=== PATIENT | female | born 1940 | race Caucasian/White ===

== ENCOUNTER 2016-02-27 10:10 | Outpatient (CLI) | payer MEDICARE, OTHER | END 2016-02-27 10:11 | disposition home or self-care (01) | DX: Z12.31 Encounter for screening mammogram for malignant neoplasm of breast (principal); Z80.3 Family history of malignant neoplasm of breast ==

== ENCOUNTER 2016-06-13 16:31 | Emergency (ER) | payer MEDICARE, OTHER | END 2016-06-13 21:09 | disposition home or self-care (01) | DX: S71.112A Laceration without foreign body, left thigh, initial encounter (principal); W01.0XXA Fall on same level from slipping, tripping and stumbling without subsequent striking against object, initial encounter; Z86.73 Personal history of transient ischemic attack (TIA), and cerebral infarction without residual deficits; Z79.01 Long term (current) use of anticoagulants; I10 Essential (primary) hypertension; E78.00 Pure hypercholesterolemia, unspecified; J45.909 Unspecified asthma, uncomplicated; K21.9 Gastro-esophageal reflux disease without esophagitis; Z87.891 Personal history of nicotine dependence ==

== ENCOUNTER 2016-07-27 09:36 | Emergency (ER) | payer MEDICARE, OTHER ==
[2016-07-27] MEDS ORDERED: DEXAMETHASONE 10 MG/ML VIAL ONE ×2 (09:53→10:32)
[2016-07-27] MEDS ORDERED: BENZONATATE 100 MG CAPSULE PO ONE (09:53)
[2016-07-27] MEDS ORDERED: CHERRY SYRUP 10 ML UDC PO ONE (09:53)
--- NOTE | 2016-07-27 10:05 | ED Physician Documentation ---
PD HPI SKIN - Stated complaint Stated Complaint: ALLERGIC REACTION - Chief complaint Chief Complaint: Allergic Rx - History obtained from History obtained from: Patient - History of Present Illness Timing - onset: Last night (She has had right lower back pain for 2-3 days, severe and without injury. Went to PMD and was given Rx for Vicodin. Had onset of some rash in low back last night, worse today. No general rash. Noted just in area of pain in back and now also some in right foot. Called PMD and was told to stop the vicodin as likely allergic reaction, and to go to the ED.) Timing - duration: Days Timing - details: Gradual onset, Still present Location: Back (right lower back and some rash on foot today) Quality / character: Itchy, Painful, Discolored (red patches), Vesicular. No: Draining Associated symptoms: No: Fever, Myalgias, Abd pain, N/V/D Contributing factors: Exposed to medication (started vicodin yesterday and also medrol dose pack.) Similar symptoms before: Has not had sx before Recently seen: Clinic Review of Systems Constitutional: denies: Fever, Chills Cardiac: denies: Chest pain / pressure Respiratory: denies: Dyspnea, Cough, Wheezing GI: denies: Nausea, Vomiting, Diarrhea Musculoskeletal: reports: Back pain (just past 3 days). 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 - Present Medications Home Medications: Ambulatory Orders Medication Instructions Recorded Confirmed Levetiracetam 1,000 mg PO BID 09/11/12 07/27/16 Metoprolol Succinate 50 mg PO DAILY 09/11/12 07/27/16 Sertraline [Zoloft] 100 mg PO DAILY 09/11/12 07/27/16 traZODone [Desyrel] 50 mg PO HS 09/11/12 07/27/16 Lisinopril 20 mg PO DAILY 10/12/13 07/27/16 Lorazepam 1 mg PO DAILY PRN 10/12/13 07/27/16 Omeprazole [PriLOSEC] 20 mg PO DAILY 06/14/14 07/27/16 lamoTRIgine [LaMICtal] 300 mg PO BID 02/06/16 07/27/16 Colestipol HCl [Colestipol HCl] 1 gm PO BID 02/11/16 07/27/16 Gabapentin [Neurontin] 100 mg PO DAILY #20 capsule 07/27/16 Valacyclovir HCl [Valacyclovir] 1,000 mg PO TID #20 tablet 07/27/16 - Allergies Allergies/Adverse Reactions: Allergies Allergy/AdvReac Type Severity Reaction Status Date / Time acyclovir Allergy Unknown Verified 06/13/16 16:42 iodine Allergy unknown Verified 06/13/16 16:42 morphine Allergy unknown Verified 06/13/16 16:42 oxycodone HCl * Allergy Unknown Verified 06/13/16 16:42 [From Percodan] oxycodone terephthalate * Allergy Unknown Verified 06/13/16 16:42 [From Percodan] propoxyphene napsylate * Allergy unknown Verified 06/13/16 16:42 [From Darvocet-N 100] rosuvastatin calcium * Allergy Unknown Verified 06/13/16 16:42 [From Crestor] shellfish derived Allergy unknown Verified 06/13/16 16:42 sumatriptan [From Imitrex] Allergy Unknown Verified 06/13/16 16:42 sumatriptan succinate * Allergy Unknown Verified 06/13/16 16:42 [From Imitrex] - Social History Does the pt smoke?: No Smoking Status: Former smoker Does the pt drink ETOH?: No Does the pt have substance abuse?: No - Immunizations Immunizations are current?: Yes PD ED PE NORMAL - Vitals Vital signs reviewed: Yes - General General: Alert and oriented X 3, No acute distress, Well developed/nourished, Other (appears in back due to right low back but with ROM of the back) - Neck Neck: Supple, no meningeal sign, No adenopathy - Cardiac Cardiac: RRR, No murmur - Respiratory Respiratory: Clear bilaterally - Abdomen Abdomen: Soft, Non tender - Back Back: No CVA TTP, No spinal TTP, Other (tender right lower back around L5 level. There is rash that is patchy red with vesicles lateral to that level and down strip of gluteal to back of upper thigh. Appears c/w shingles. ) - Derm Derm: Normal color, Warm and dry - Extremities Extremities: Normal ROM s pain - Neuro Neuro: Alert and oriented X 3, No motor deficit, No sensory deficit, Normal speech - Psych Psych: Normal mood, Normal affect Results - Vitals Vitals: Vital Signs - 24 hr 07/27/16 07/27/16 09:44 11:28 Temperature 36.4 C L Heart Rate 95 63 Respiratory 18 18 Rate Blood Pressure 122/67 132/58 H O2 Saturation 99 100 Oxygen O2 Source [Without Activity] Room air O2 Source Room air PD MEDICAL DECISION MAKING - ED course Complexity details: considered differential, d/w patient Departure - Departure Disposition: 01 Home, Self Care Clinical Impression: Back pain Qualifiers: Back pain location: low back pain Chronicity: acute Back pain laterality: right Sciatica presence: with sciatica Sciatica laterality: sciatica of right side Qualified Code(s): M54.41 - Lumbago with sciatica, right side Shingles rash Qualifiers: Herpes zoster complications: without complications Qualified Code(s): B02.9 - Zoster without complications Condition: Stable Record reviewed to determine appropriate education?: Yes Instructions: ED Shingles Follow-Up: Lyle Bartlett MD [Primary Care Provider] - Prescriptions: Gabapentin [Neurontin] 100 mg PO DAILY #20 capsule Valacyclovir HCl [Valacyclovir] 1,000 mg PO TID #20 tablet Comments: Valacyclovir as directed for the shingles virus. Continue the steroid pack you were on. Tylenol 650 mg or the Hydrocodone every 6 hours as needed for pain. Gabapentin nightly for 3 weeks. Recheck with PMD this coming week. Discharge Date/Time: 07/27/16 11:33
[2016-07-27] MEDS ORDERED: DEXAMETHASONE 10 MG/ML VIAL PO STA (10:30)
[2016-07-27] MEDS ORDERED: HYDROcod/ACETAM 5/325 MG TABLET PO STA (10:30)
[2016-07-27] MEDS ORDERED: ACYCLOVIR 200 MG CAPSULE PO STA (10:30)
[2016-07-27] MEDS ORDERED: ACYCLOVIR 200 MG CAPSULE PO ONE (10:32)
[2016-07-27] MEDS ORDERED: HYDROcod/ACETAM 5/325 MG TABLET ONE (10:32)
[2016-07-27 11:29] VITALS: BP 132/58
== END 2016-07-27 11:33 | disposition home or self-care (01) ==
LOC: ED 09:36
DX: B02.9 Zoster without complications (principal); M54.41 Lumbago with sciatica, right side; I10 Essential (primary) hypertension; G40.909 Epilepsy, unspecified, not intractable, without status epilepticus; Z87.891 Personal history of nicotine dependence
CPT/HCPCS: 99283; A9270

== ENCOUNTER 2016-08-25 13:15 | Observation (INO) | payer MEDICARE, OTHER ==
[2016-08-25] MEDS ORDERED: HYDROcod/ACETAM 5/325 MG TABLET PO STA ×2 (13:36→15:35)
--- NOTE | 2016-08-25 13:39 | ED Physician Documentation ---
PD HPI FOCAL NEURO - Stated complaint Stated Complaint: STROKE LIKE SYMPTOMS - Chief complaint Chief Complaint: Neuro - History obtained from History obtained from: Patient, Family () - History of Present Illness Timing - onset: Other (76-year-old woman with history of debilitating stroke back in 2008 with prolonged recovery developed weakness and stiffness of the left leg between 9 and 930 this morning that caused a fall in the shower without injury. Over the next 15 minutes or so the weakness significantly improved, but did not resolve and she continues to have some difficulty With strength there but the was able to get her in the car and here after discussing the case with the nurse for the on-call neurologist in [place]. She also has a pretty significant left-sided headache that is worse than her normal headaches, although the admits that she has frequent headaches.) Review of Systems Ten Systems: 10 systems reviewed and negative Constitutional: denies: Fever, Chills Ears: denies: Loss of hearing, Ear pain Cardiac: denies: Chest pain / pressure, Palpitations Respiratory: denies: Dyspnea, Cough GI: denies: Abdominal Pain PD PAST MEDICAL HISTORY - Past Medical History Cardiovascular: Hypertension, High cholesterol Respiratory: Asthma Neuro: CVA, Seizure disorder Endocrine/Autoimmune: None GI: GERD : Incontinence HEENT: Chronic vision loss Psych: Depression, Anxiety Musculoskeletal: Osteoarthritis Derm: None - Past Surgical History Past Surgical History: Yes General: Appendectomy 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 - Present Medications Home Medications: Ambulatory Orders Medication Instructions Recorded Confirmed Levetiracetam 1,000 mg PO BID 09/11/12 08/25/16 Metoprolol Succinate 50 mg PO DAILY 09/11/12 08/25/16 Sertraline [Zoloft] 100 mg PO DAILY 09/11/12 08/25/16 traZODone [Desyrel] 50 mg PO HS 09/11/12 08/25/16 Lisinopril 20 mg PO DAILY 10/12/13 08/25/16 Lorazepam 0.5 - 1 mg PO DAILY PRN 10/12/13 08/25/16 Omeprazole [PriLOSEC] 20 mg PO BID 06/14/14 08/25/16 lamoTRIgine [LaMICtal] 300 mg PO BID 02/06/16 08/25/16 Colestipol HCl [Colestipol HCl] 1 gm PO BID 02/11/16 08/25/16 Cholecalciferol (Vitamin D3) 1 tab DAILY 08/25/16 08/25/16 [Vitamin D3] - Allergies Allergies/Adverse Reactions: Allergies Allergy/AdvReac Type Severity Reaction Status Date / Time acyclovir Allergy Unknown Verified 08/25/16 13:27 iodine Allergy unknown Verified 08/25/16 13:27 morphine Allergy unknown Verified 08/25/16 13:27 oxycodone HCl * Allergy Unknown Verified 08/25/16 13:27 [From Percodan] oxycodone terephthalate * Allergy Unknown Verified 08/25/16 13:27 [From Percodan] propoxyphene napsylate * Allergy unknown Verified 06/13/16 16:42 [From Darvocet-N 100] rosuvastatin calcium * Allergy Unknown Verified 08/25/16 13:27 [From Crestor] shellfish derived Allergy unknown Verified 08/25/16 13:27 sumatriptan [From Imitrex] Allergy Unknown Verified 08/25/16 13:27 sumatriptan succinate * Allergy Unknown Verified 08/25/16 13:27 [From Imitrex] - Social History Does the pt smoke?: No Smoking Status: Former smoker Does the pt drink ETOH?: No Does the pt have substance abuse?: No - Family History Family history: reports: Non contributory - Immunizations Immunizations are current?: Yes PD ED PE NORMAL - Vitals Vital signs reviewed: Yes - General General: Alert and oriented X 3, Other (She is tearful, when asked her why, she is unable to tell me whether it is from fear or the pain of her headache.) - HEENT HEENT: PERRL, EOMI - Neck Neck: Supple, no meningeal sign, No bony TTP - Cardiac Cardiac: RRR, No murmur - Respiratory Respiratory: No respiratory distress, Clear bilaterally - Abdomen Abdomen: Soft, Non tender - Extremities Extremities: No deformity, No tenderness to palpate - Neuro Neuro: Other (I am unable to formally test for pronator drift in the right arm because of chronic shoulder immobility, she does seem to have some ataxia in left upper extremity finger to nose testing, and significant pronator drift in the left lower extremity, she has diminished sensation in the left upper extremity,) - Psych Psych: Normal mood, Normal affect NIHSS - Time Time: 13:35 - Level of Consciousness Level of consciousness: (0) Alert, Keenly responsive LOC Questions: (0) Answers both Q's correct LOC Commands: (0) Performs both correctly - Gaze Best Gaze: (0) Normal - Visual Visual: (0) No loss - Facial Palsy Facial Palsy: (0) Normal, symmetrical movement - Motor Arms (both separate) Motor Arm (right): (0) No drift Motor Arm (left): (0) No drift - Motor Legs (both separate) Motor Leg (right): (0) No drift Motor Leg (left): (1) Drift - Limb Ataxia Limb Ataxia: (1) Present in 1 limb - Sensory Sensory: (1) Bbvz-ye-dizgmect loss - Best Language Best Language: (0) No aphasia - Dysarthria Dysarthria: (0) Normal - Extinction and Inattention (formally neg Extinction and inattention: (0) No abnormality - Total Score/Results Total Score/Result: 3 Results - Vitals Vitals: Vital Signs - 24 hr 08/25/16 13:15 Temperature 36.4 C L Heart Rate 54 L Respiratory 18 Rate Blood Pressure 115/59 L O2 Saturation 90 L Oxygen O2 Source [] Room air O2 Source Room air Oxygen Flow Rate 2 - EKG (time done) 1419 Rate: Rate (enter#) (67) Rhythm: NSR [place]: Normal Intervals: Normal [place] QRS: Normal Ischemia: Normal ST segments Computer interpretation: Agree with computer - Labs Labs: Laboratory Tests 08/25/16 08/25/16 08/25/16 13:21 13:37 13:37 WBC 3.7 L RBC 3.65 L Hgb 11.5 L Hct 32.8 L MCV 90.0 MCH 31.6 H MCHC 35.1 RDW 14.1 Plt Count 243 MPV 6.2 L Neut # 2.1 Lymph # 1.2 L [place] # 0.4 Eos # 0.1 Baso # 0.0 Absolute Nucleated RBC 0.00 Nucleated RBCs 0.0 PT 10.6 INR 0.9 Sodium Potassium Chloride Carbon Dioxide Anion Gap BUN Creatinine Estimated GFR (MDRD) Glucose POC Whole Bld Glucose 103 H Calcium Magnesium Total Bilirubin AST ALT Alkaline Phosphatase Total Creatine Kinase CK-MB (CK-2) Troponin I Total Protein Albumin Globulin Albumin/Globulin Ratio Lipase Ethyl Alcohol 07/03/17 07/03/17 13:37 13:37 WBC RBC Hgb Hct MCV MCH MCHC RDW Plt Count MPV Neut # Lymph # [place] # Eos # Baso # Absolute Nucleated RBC Nucleated RBCs PT INR Sodium 132 L Potassium 3.8 Chloride 96 L Carbon Dioxide 28 Anion Gap 8.0 BUN 13 Creatinine 0.7 Estimated GFR (MDRD) 82 L Glucose 112 H POC Whole Bld Glucose Calcium 9.5 Magnesium 1.8 Total Bilirubin 0.4 AST 20 ALT 14 Alkaline Phosphatase 56 Total Creatine Kinase 70 CK-MB (CK-2) 2.3 Troponin I < 0.04 Total Protein 7.1 Albumin 4.3 Globulin 2.8 Albumin/Globulin Ratio 1.5 Lipase 101 H Ethyl Alcohol < 5.0 PD MEDICAL DECISION MAKING - ED course ED course: 76-year-old woman with strokelike symptoms that have improved and she arrives right at about the 4-1/2 hour felecia making her not a candidate for TPA. No evidence of new pathology on CT at this juncture, but still could be resolving TIA versus CVA with improving symptoms. Spoke with Dr. Gardner for admission at 1429, she was given aspirin. Departure - Departure Disposition: 66 [facility] DC/Xfer Clinical Impression: Cerebrovascular accident (CVA) Qualifiers: CVA mechanism: unspecified Qualified Code(s): I63.9 - Cerebral infarction, unspecified Condition: Stable
[2016-08-25 13:54] LABS: BASOPHILS % (AUTO) 0.6 %; EOSINOPHILS # (AUTO) 0.1 10^3/uL (0.0-0.7); EOSINOPHILS % (AUTO) 1.8 %; HCT - HEMATOCRIT 32.8 % (37.0-47.0); HGB - HEMOGLOBIN 11.5 g/dL (12.0-16.0); LYMPHOCYTES # (AUTO) 1.2 10^3/uL (1.5-3.5); LYMPHOCYTES % (AUTO) 31.7 %; MEAN CORPUSCULAR HEMOGLOBIN 31.6 pg (27.0-31.0); MEAN CORPUSCULAR HGB CONC 35.1 g/dL (32.0-36.0); MEAN PLATELET VOLUME 6.2 fL (7.9-10.8); MONOCYTES # (AUTO) 0.4 10^3/uL (0.0-1.0); MONOCYTES % (AUTO) 10.2 %; NEUTROPHILS # (AUTO) 2.1 10^3/uL (1.5-6.6); NEUTROPHILS % (AUTO) 55.7 %; RED BLOOD COUNT 3.65 10^6/uL (4.20-5.40); RED CELL DISTRIBUTION WIDTH 14.1 % (12.0-15.0); UNCORRECTED WHITE BLOOD COUNT 3.7 x10^3/uL; WHITE BLOOD COUNT 3.7 x10^3/uL (4.8-10.8)
[2016-08-25] MEDS ORDERED: HYDROcod/ACETAM 5/325 MG TABLET ONE ×2 (13:58→15:36)
[2016-08-25 14:02] LABS: INR 0.9 (0.8-1.2); PT - PROTHROMBIN TIME 10.6 secs (9.9-12.6)
[2016-08-25 14:08] LABS: ALBUMIN/GLOBULIN RATIO 1.5 (1.0-2.2); BILIRUBIN,TOTAL 0.4 mg/dL (0.2-1.0); BUN - BLOOD UREA NITROGEN 13 mg/dL (6-20); CALCIUM 9.5 mg/dL (8.5-10.3); CARBON DIOXIDE - CO2 28 mmol/L (21-32); CHLORIDE 96 mmol/L (101-111); CREATININE 0.7 mg/dL (0.4-1.0); GFR - MDRD 82 (>89); GLUCOSE 112 mg/dL (70-100); LIPASE 101 U/L (22-51); MAGNESIUM 1.8 mg/dL (1.7-2.8); POTASSIUM 3.8 mmol/L (3.5-5.0); SODIUM 132 mmol/L (135-145); TOTAL PROTEIN 7.1 g/dL (6.7-8.2)
[2016-08-25 14:11] LABS: TROPONIN I < 0.04 ng/mL (<0.49)
[2016-08-25 14:13] LABS: CREATINE KINASE MB 2.3 ng/mL (0.6-6.3)
--- NOTE | 2016-08-25 14:21 | CT Preliminary Report ---
Exam: CT Head W/O IMPRESSION: 1. Remote posterior right middle cerebral artery territory infarct. 2. No acute intracranial abnormality nor bleed. [facility] SITE ID: [id number]
[2016-08-25] MEDS ORDERED: ASPIRIN CHEW 81 MG TABLET PO STA (14:24)
[2016-08-25] MEDS ORDERED: ASPIRIN CHEW 81 MG TABLET ONE (14:27)
--- NOTE | 2016-08-25 14:30 | CT Report ---
EXAM: CT HEAD EXAM DATE: 08/25/2016 02:03 PM. CLINICAL HISTORY: Left-sided weakness. COMPARISON: 06/13/2016.. TECHNIQUE: Multiaxial CT images were obtained from the foramen magnum to the vertex. IV contrast: Non e. Reformats: Coronal. In accordance with CT protocol optimization, one or more of the following dose reduction techniques w ere utilized for this exam: automated exposure control, adjustment of mA and/or KV based on patient s ize, or use of iterative reconstructive technique. 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 No intraparenchymal hemorrha ge. No evidence of mass, midline shift, or CT findings of acute infarction. Ochoa-white differentiatio n is distinct. Extraaxial Spaces: Normal for age. No subdural or epidural collections identified. Ventricles: The ventricles and cortical sulci are enlarged, consistent with age-related tissue loss. Sinuses: Imaged paranasal sinuses, orbits, and mastoids show no significant abnormality. Bones: No evidence of fracture or calvarial defect. Other: Diffuse chronic microangiopathic white matter changes are evident. IMPRESSION: 1. Remote posterior right middle cerebral artery territory infarct. 2. No acute intracranial abnormality nor bleed. [facility] Referring Provider Line: [phone] SITE ID: [id number]
[2016-08-25] MEDS ORDERED: ONDANSETRON ODT 4 MG TABLET TL PRN (15:47)
[2016-08-25] MEDS ORDERED: SODIUM CHLORIDE FLUSH 0.9% 10 ML SYRINGE IVP PRN (15:47)
--- NOTE | 2016-08-25 19:17 | XRAY Preliminary Report ---
Exam: XR Hip w/Pelvis 2-3V RT IMPRESSION: 1. No acute bone abnormalities are seen. 2. Mild right hip degenerative joint disease. [facility] SITE ID: [id number]
--- NOTE | 2016-08-25 19:20 | XRAY Report ---
EXAM: RIGHT HIP AND PELVIS RADIOGRAPHY EXAM DATE: 08/25/2016 05:54 PM. HISTORY: Right hip pain. COMPARISONS: CT abdomen pelvis 05/19/2015.. TECHNIQUE: 1 view of the pelvis and 1 view of the hip. FINDINGS: Bones: No evidence for acute fracture. No acute bone abnormalities are seen. Joints: Mild right hip degenerative joint disease with joint space narrowing and osteophytes. No disl ocation. Mild left hip joint space narrowing. Mild pubic symphysis degenerative change. Interbody metallic cages again seen at L4-L5 and L5-S1. Soft Tissues: Unremarkable IMPRESSION: 1. No acute bone abnormalities are seen. 2. Mild right hip degenerative joint disease. [facility] Referring Provider Line: [phone] SITE ID: [id number]
[2016-08-25] MEDS: SODIUM CHLORIDE FLUSH 0.9% 10 ML SYRINGE IVP SCH (20:11)
[2016-08-25] MEDS: levETIRAcetam 250 MG TABLET PO SCH (20:11)
[2016-08-25] MEDS: PANTOPRAZOLE 40 MG TABLET PO SCH (20:11)
[2016-08-25] MEDS: OXYBUTYNIN 5MG TABLET PO SCH (20:11)
[2016-08-25] MEDS: lamoTRIgine 100 MG TABLET PO SCH (20:11)
--- NOTE | 2016-08-25 22:29 | HISTORY & PHYSICAL EXAMINATION ---
DATE OF ADMISSION: 08/25/2016 PRIMARY CARE PROVIDER: Dr. Bartlett. PRIMARY NEUROLOGIST: Dr. Nimisha Rondon at the [facility]. ADMITTING PROVIDER: ATYLOR Torres. The patient was referred by Dr. Deshawn Bustamante of the emergency department. The patient was seen by me at 2:50 p.m. in ER bed #3 with her , Jg, at bedside. CHIEF COMPLAINT: "I fell in the shower." HISTORY OF THE PRESENT ILLNESS: The patient is a pleasant 76-year-old female with a history of debilitating right MCA stroke in 2008, followed by onset of epilepsy in 2009 with 2 episodes of seizure. She has since been managed on Keppra and Lamictal and is not on aspirin or a statin. Reports ALLERGY TO CRESTOR and is managed on colestipol. The patient reports frequent falls at home due to mechanical weakness of her knees, shuffling gait, and quick maneuvers. This morning, she was in the shower when she began to develop a cramp in the plantar surface of her left foot. She reports she was unable to straighten out the foot to ease the cramping. She reports some cramping in the left leg as well and was unable to straighten it. She reports similar episodes in the past, not many, and they resolved on their own. She then suffered a fall. She does not have a good memory of how exactly she fell, but her said he found her crumpled on the shower floor. She does report some pain in the right hip. This is [id number]. Her spent 5 to 10 minutes with her in the shower, flexing and dorsiflexing the foot to try to get it moving again. He reports with her major stroke in 2008, foot drop was an issue they were concerned about and she had therapy to prevent this. Once the foot was able to dorsiflex again, he was able to get her standing and then to the car to bring her to the emergency room. Prior to coming to the emergency room, they did contact the patient's primary neurologist who agreed with their plan of care. The patient denies any loss of consciousness with the fall. She had no dizziness or weakness. She did report a headache. She described to the emergency room MD a left-sided headache. She reports to me that it was initially a frontal headache and now feels more posterior and describes it as pressure. No sharp or shooting pains. She denies any vision changes but states her vision is poor because she did not have her glasses. She denies any nausea, no shortness of breath or chest pain, no palpitations, no back pain or loss of bowel or bladder control. She did not have any tonic-clonic movements witnessed by her . EMERGENCY ROOM COURSE OF STAY: Upon arrival to the emergency room, the patient was hemodynamically stable. Blood pressure 115/59, heart rate 54 beats per minute, O2 saturation 98 on room air. LABS OBTAINED: She had mild neutropenia, anemia which appears near baseline, unremarkable chemistries and no evidence of ETOH on board. Urinalysis has yet to be obtained. Imaging of the brain via CT revealed remote 6 x 4 x 4.5 cm area in the right frontal and parietal lobes, consistent with prior right MCA stroke. No acute intracranial abnormality or bleeding identified. The patient's NIH stroke scale was 3. The hospitalist service was then consulted for admission to rule out acute CVA. CODE STATUS: FULL CODE. ALLERGIES 1. ACYCLOVIR. 2. IODINE. 3. MORPHINE. 4. OXYCODONE. 5. DARVOCET. 6. CRESTOR. 7. SHELLFISH. 8. SUMATRIPTAN. PAST MEDICAL HISTORY 1. Hemorrhagic CVA in 2008. 2. 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 No seizure since then. 3. Hypertension. 4. Hyperlipidemia. 5. Depression. 6. Anxiety. 7. Frequent diarrhea. 8. Insomnia. 9. GERD. 10. Overactive bladder. PAST SURGICAL HISTORY 1. Appendectomy. 2. Bilateral carpal tunnel repair. 3. Unilateral oophorectomy, patient unsure when or why she had this. Denies any history of ectopic or concern for ovarian cancer. 4. Right rotator cuff repair. 5. Breast reduction. OBSTETRICAL HISTORY: The patient has had 4 pregnancies and 4 live births without complications. SOCIAL HISTORY: The patient is , has 4 children, lives in a house with her - one step to enter. They are originally from [place] but have lived in [place] since. 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 HABITS: The patient is an ex-smoker, smoked for roughly 30 years from 1955 to 1984. She does not drink alcohol. She does not use any illicit or recreational drugs. She does drink decaf coffee. FAMILY HISTORY: The patient has a mother and aunt with diabetes, as well as a grandmother. Her father had congestive heart failure. No family history of cancer or stroke. REVIEW OF SYSTEMS CONSTITUTIONAL: The patient denies any recent weight loss, did lose weight following the stroke but has since been stable. HEAD, EYES, EARS, NOSE, AND THROAT: The patient wears glasses, has upper and lower dentures. CARDIOVASCULAR: The patient denies any implanted devices. No chest pain, shortness of breath, or dyspnea on exertion. No episodes of syncope. RESPIRATORY: The patient denies any shortness of breath, no cough, cold or congestion, no history of lung disease. GASTROINTESTINAL: The patient has occasional diarrhea. She has had prior workup with EGD which was negative. MUSCULOSKELETAL: The patient reports frequent falls, around 6 per month. She does not use ambulatory devices. Denies any joint swelling or fusion. SKIN: Denies rashes or wounds. Occasional bruising and scrapes from the falls. NEUROLOGIC: Pertinent positives and negatives as noted above and in HPI. All other systems were reviewed and negative. PHYSICAL EXAMINATION VITAL SIGNS: Temperature 36.8 degrees Celsius, heart rate 63 beats per minute, blood pressure 130/70, respiratory rate 18 breaths per minute, O2 saturation 98 % on room air. CONSTITUTIONAL: The patient is a well-developed, thin, lean 76-year-old female, sitting up in the bed in no acute distress. She is calm and cooperative with exam. HEAD, EYES, EARS, NOSE, AND THROAT: Normocephalic, atraumatic. Pupils were equal , round, reactive to light to light. Extraocular eye movements intact. Unable to assess vision due to lack of her glasses. Nares are patent and dry. Mucous membranes are pink and moist. Dentures in place. NECK: Supple, without JVD, no carotid bruits auscultated. CARDIOVASCULAR: The patient has a regular rate and rhythm, no murmur, gallops or rubs. She has +2 radial, +1 pedal pulses bilaterally with no dependent edema in the lower extremities. RESPIRATORY: Respirations are equal and unlabored with clear bilateral breath sounds, diminished in the bases. Strong cough. No increased work of breathing. GASTROINTESTINAL: Abdomen soft, nontender, with hypoactive bowel sounds x 4 quadrants. No guarding, no rebound tenderness. No masses appreciated. GENITOURINARY: Deferred. MUSCULOSKELETAL: The patient has a limited range of motion of the right shoulder due to previous rotator cuff surgery, limited abduction which prohibits adduction and does have difficulty lifting the arm straight in front of her. Her left upper extremity with moderate strength, very slight pronator drift. She is unable to straight-leg lift either of her lower extremities, able to flex and dorsiflex the ankles with moderate strength. SKIN: Warm, dry, and intact. She is wearing jeans, so I am unable to examine her upper legs. NEUROLOGIC: The patient is awake, alert, and oriented to person, place, time and situation. Lower extremity weakness, unsure if acute or chronic, decreased sensation in the left upper extremity which is at her baseline. PSYCHIATRIC: Normal mood and affect. LINES AND TUBES: A 20-gauge peripheral IV in the left AC. LABORATORY DATA: CBC: WBC 3.7, hemoglobin 11.5, hematocrit 32.8, platelet count 243,000. Coagulation: INR 0.9. Chemistry: Sodium 132, potassium 3.8, chloride 96 , carbon dioxide 28, anion gap 8, BUN 13, creatinine 0.7, GFR 82, glucose 112, calcium 9.5, magnesium 1.8, total bilirubin 0.4. AST, ALT, and alkaline phosphatase within normal limits. Total CK 70, CK-MB 2.3, troponin less than 0.04, CRP 1.0, total protein 7.1, albumin 4.3, lipase 101. IMAGING: CT head. Impression: Remote posterior right MCA territory infarct, no acute intracranial abnormality or bleed. ASSESSMENT: The patient is a 76-year-old female with a history of prior hemorrhagic stroke, now presenting with left lower extremity weakness, resulting in fall, frequent falls at home likely contributed to by her ankle/ possible foot drop. Will admit to observation status to rule out stroke. 1. Transient ischemic attack. High risk due to previous stroke, hypertension, hyperlipidemia contributing to vascular disease. No prior history of atrial fibrillation. The patient had transient left lower extremity, also described as a cramping in the bottom of her foot and in the leg with difficulty extending it. No visual or speech changes. Upper extremities appear to be lesser involved. Symptoms have resolved mostly. CT head negative for acute bleeding. Will obtain MRI brain, carotid Doppler, echo, lipid panel in a.m. Of note, she is not on aspirin or statin, ALLERGY TO STATIN noted. Will discuss with her primary neurologist if aspirin should be initiated prior to doing so, given history of brain bleed. This does not appear to be an epileptic event. Due to concern for cramping, magnesium was checked and is normal. We will hold her blood pressure medications for now until stroke is ruled out. Will monitor on telemetry for any ectopy, bradycardia, or arrhythmia, which could contribute to stroke risk. 2. Frequent falls. The patient and family report about 6 falls per month, has recently had no injury or fractures. Now with right hip pain which is acute on chronic. Will obtain plain films to rule out fracture. Will have physical therapy/occupational therapy evaluation. She would likely benefit from outpatient physical therapy. 3. Hypertension. The patient is normotensive. No hypertensive episodes noted. Will hold her antihypertensive medications until stroke is ruled out, at which time, her lisinopril, metoprolol succinate can be resumed. 4. Hyperlipidemia. This is a contributing risk factor for further stroke. Currently managed on colestipol 1 g twice a day. Will resume and check lipid panel in a.m. 5. Epilepsy. This is secondary to her hemorrhagic stroke. Managed on Keppra 1000 mg b.i.d. Will continue this medication and monitor for stroke. Lamictal 200 mg with 1-1/2 tablets twice a day will also be given, which is her home medication. The patient will need to follow up with Neurology after discharge. 6. Depression. The patient reports no exacerbation. Her mood has been stable. She has been taking her medications. Will continue her sertraline 100 mg at bedtime. 7. Gastroesophageal reflux disease. Currently asymptomatic. Will continue her omeprazole twice a day or substitute per formulary. This plan was discussed with the patient and her . Their questions were answered, and they are agreeable with this plan. HOSPITAL ISSUES 1. DVT prophylaxis: TEDs and SCDs. No chemical prophylaxis due to history of hemorrhagic stroke. 2. Peptic ulcer prophylaxis: PPI twice a day. 3. Diet: Regular. 4. Activity: Up with assist. 5. Precautions: Fall and seizure. DISPOSITION: Observation to the Med/Surg floor with telemetry. EXPECTED LENGTH OF STAY: The patient is expected to obtain imaging, as noted above, labs in a.m., PT/OT evaluation tomorrow, and if stable, be able to discharge home late on 08/26/2016. If there is a delay in imaging secondary to the august holiday, discharge may be delayed until 08/27/2016, as she has come in around 5 p.m. in the evening. Changes in her neurological status, recurrent episodes of TIA could delay discharge. JOB #: [id number] EXT JOB #:[id number] [email or web address]
--- NOTE | 2016-08-25 23:38 | Ultrasound Preliminary Report ---
Exam: US Carotid Doppler Complete IMPRESSION: 1. Less than 50% stenosis of the right internal carotid artery. 2. Less than 50% stenosis of the left internal carotid artery. 3. Suspect high-grade stenosis within the proximal left vertebral artery. 4. Neck vessels could be further assessed with CT or MR angiogram as clinically warranted. Validated velocity measurements with angiographic measurements and velocity criteria are extrapolated from diameter data as defined by the Society of Radiologists in Ultrasound Consensus Conference Radi ology 2003; 229;340-346. [facility] SITE ID: [id number]
--- NOTE | 2016-08-25 23:58 | Ultrasound Report ---
EXAM: CAROTID DOPPLER ULTRASOUND EXAM DATE: 08/25/2016 11:10 PM. CLINICAL HISTORY: Right lower extremity weakness. COMPARISON: None. TECHNIQUE: Real-time sonographic vascular imaging was performed by the business continuity planner through the [employer] d arterial system with a linear transducer utilizing color-flow, Doppler flow and spectral analysis. Multiple account retention representative static images were saved for review. FINDINGS: Calcified plaque noted within the proximal right common carotid artery. Calcified and soft plaque wit hin the right-sided carotid bulb. There is antegrade flow of the right vertebral artery. Calcified plaque of moderate severity within the proximal left common carotid artery. Moderate to sev ere calcified plaque within the left carotid bulb. Mild calcified plaque and soft plaque within the l eft internal carotid artery. Elevated velocities noted within the proximal left vertebral artery with a triphasic waveform. Mid to distal left vertebral artery demonstrates parvus tardus waveform. Right: RCCA Prox: PSV 50.5 cm/sec. RCCA Dist: PSV 55.9 cm/sec, EDV 8.7 cm/sec. RECA: PSV 84.1 cm/sec. R Bulb: PSV 50.4 cm/sec, EDV 12.4 cm/sec, ICA/CCA ratio 0.9. LEIGHANN Prox: PSV 50.4 cm/sec, EDV 11.0 cm/sec, ICA/CCA ratio 0.9. LEIGHANN Mid: PSV 46.1 cm/sec, EDV 12.4 cm/sec, ICA/CCA ratio 0.8. LEIGHANN Dist: PSV 74.8 cm/sec, EDV 18.3 cm/sec, ICA/CCA ratio 1.3. RVA: PSV 50.6 cm/sec. RVA flow direction: Antegrade. Left: LCCA Prox: PSV 88.2 cm/sec. LCCA Dist: PSV 57.9 cm/sec, EDV 12.0 cm/sec. LECA: PSV 115.1 cm/sec. L Bulb: PSV 80.1 cm/sec, EDV 18.5 cm/sec, ICA/CCA ratio 1.4. LICA Prox: PSV 97.7 cm/sec, EDV 22.4 cm/sec, ICA/CCA ratio 1.7. LICA Mid: PSV 88.4 cm/sec, EDV 24.1 cm/sec, ICA/CCA ratio 1.5. LICA Dist: PSV 70.8 cm/sec, EDV 15.7 cm/sec, ICA/CCA ratio 1.2. LVA: PSV 108.2 cm/sec. LVA flow direction: Antegrade. Other: None. IMPRESSION: 1. Less than 50% stenosis of the right internal carotid artery. 2. Less than 50% stenosis of the left internal carotid artery. 3. Suspect high-grade stenosis within the proximal left vertebral artery. 4. Neck vessels could be further assessed with CT or MR angiogram as clinically warranted. Validated velocity measurements with angiographic measurements and velocity criteria are extrapolated from diameter data as defined by the Society of Radiologists in Ultrasound Consensus Conference Radi ology 2003; 229;340-346. [facility] Referring Provider Line: [phone] SITE ID: [id number]
[2016-08-26] MEDS: ACETAMINOPHEN 325 MG TABLET PO PRN ×3 (00:33→10:59)
[2016-08-26 06:04] LABS: CHOL/HDL RATIO 4.1 (<4.4); CHOLESTEROL 263 mg/dL; HDL CHOLESTEROL 64 mg/dL; LDL/HDL RATIO 2.8 (<4.4); TRIGLYCERIDES 98 mg/dL; VLDL CHOLESTEROL 20 mg/dL
[2016-08-26] MEDS: PANTOPRAZOLE 40 MG TABLET PO SCH (06:22)
[2016-08-26] MEDS: SODIUM CHLORIDE FLUSH 0.9% 10 ML SYRINGE IVP SCH ×2 (06:22→14:02)
[2016-08-26] MEDS ORDERED: CHOLECALCIFEROL 5,000 UNIT CAPSULE PO SCH (09:00)
[2016-08-26] MEDS ORDERED: POLYETHYLENE GLYCOL 3350 17 GM PACKET PO SCH (09:00)
[2016-08-26] MEDS ORDERED: SERTRALINE 50 MG TABLET PO SCH (09:00)
[2016-08-26] MEDS: lamoTRIgine 100 MG TABLET PO SCH (09:01)
[2016-08-26] MEDS: levETIRAcetam 250 MG TABLET PO SCH (09:01)
[2016-08-26] MEDS: OXYBUTYNIN 5MG TABLET PO SCH (09:02)
--- NOTE | 2016-08-26 12:36 | PROVIDER PROGRESS NOTE ---
Subjective - Prog Note Date Prog Note Date: 08/26/16 Prog Note Time: 12:34 - Subjective Pt reports feeling: Improved (pt report beside her chronic left side headache, her symptoms is resloved, no further sense and motor deficits) Objective - Vital Signs/Intake & Output Vital Signs: Vital Signs x48h Temp Pulse Resp BP BP Pulse Ox 08/26/16 07:52 37.1 C 53 L 14 138/66 H 96 08/26/16 05:00 36.8 C 66 16 120/57 L 99 Intake & Output: Intake & Output 08/23/16 08/24/16 08/25/16 08/26/16 23:59 23:59 23:59 23:59 Intake Total 510 Balance 510 - Objective General Appearance: positive: No acute distress, Alert. negative: Mild distress , Moderate distress, Severe distress, Anxious, Lethargic, Other Eyes Bilateral: positive: Normal inspection, PERRL. negative: EOMI, No lid inflammation, Conjunctivae nml, No scleral icterus, Other ENT: positive: ENT inspection nml, Pharynx nml, No signs of dehydration. negative: Purulent nasal drainage, Pharyngeal erythema, Oral lesions, Dry mucous membranes, Other Neck: positive: Nml inspection, Trachea midline. negative: Thyroid nml, No JVD , Thyromegaly, Lymphadenopathy (R), Lymphadenopathy (L), Stiff neck, Kernig's sign, Brudzinski's sign, Carotid bruit, Swelling/bruising, Tracheal deviation, Other Respiratory: positive: Chest non-tender, No respiratory distress, Breath sounds nml. negative: Wheezes, Rales, Rhonchi, Other Cardiovascular: positive: Regular rate & rhythm, No murmur, No gallop. negative : Irregularly irregular, Extrasystoles, Tachycardia, Bradycardia, PMI displaced laterally, JVD present, Systolic murmur, Diastolic murmur, Gallop/S3, Gallop/S4 , Friction rub, Decreased pulse(s), Crepitus, Other Peripheral Pulses: 2+ Radial (R), 2+ Radial (L), 2+ Dorsalis pedis (R), 2+ Dorsalis pedis (L) Abdomen: positive: Non-tender, Nml bowel sounds, No distention Back: positive: Nml inspection Skin: positive: Color nml, Warm. negative: No rash, Dry, Cyanosis, Diaphoresis , Pallor, Skin rash, Decubitus, Laceration (cm), Puncture wound, Embolic lesions , Other Extremities: positive: Non-tender, Full ROM Neurologic/Psychiatric: positive: Oriented x3, CN's nml (2-12), Motor nml, Sensation nml. negative: Mood/affect nml, Disoriented to person, Disoriented to place, Disoriented to time, Weakness, Sensory loss, Facial droop, Slurred/ abnml speech, Depressed mood/affect, Other - Lab Results Fish Bones: 08/25/16 13:37 08/25/16 13:37 Other Labs: Lab Results x24hrs 08/26/16 Range/Units 05:30 Triglycerides 98 ( - 149) mg/dL Cholesterol 263 H ( - 199) mg/dL LDL Cholesterol, Calc 179 H ( - 129) mg/dL VLDL Cholesterol 20 mg/dL HDL Cholesterol 64 (60 - ) mg/dL LDL/HDL Ratio 2.8 (<4.4) Cholesterol/HDL Ratio 4.1 (<4.4) Assessment/Plan - Problem List (1) Transient ischemic attack (TIA) Impression: review and agree my colleague Ms Espinoza's assessment and plan on 08/25/16 review vital, order today lab test will continue finish MRI, ECHO, CXR discuss with pt and her the benefit and risk of lower dosage Aspirin, especially pt with hx of hemorrhagic stroke. pt state she prefer to see her neurologist to decide if on aspirin as outpt. Pt had 324 Aspirin at ER on yesterday, will follow up closely
[2016-08-26 12:51] LABS: BASOPHILS % (AUTO) 0.5 %; EOSINOPHILS # (AUTO) 0.1 10^3/uL (0.0-0.7); EOSINOPHILS % (AUTO) 1.5 %; HCT - HEMATOCRIT 33.4 % (37.0-47.0); HGB - HEMOGLOBIN 11.6 g/dL (12.0-16.0); LYMPHOCYTES # (AUTO) 1.5 10^3/uL (1.5-3.5); LYMPHOCYTES % (AUTO) 34.5 %; MEAN CORPUSCULAR HEMOGLOBIN 31.4 pg (27.0-31.0); MEAN CORPUSCULAR HGB CONC 34.6 g/dL (32.0-36.0); MEAN CORPUSCULAR VOLUME 90.7 fL (81.0-99.0); MEAN PLATELET VOLUME 6.9 fL (7.9-10.8); MONOCYTES # (AUTO) 0.4 10^3/uL (0.0-1.0); MONOCYTES % (AUTO) 8.9 %; NEUTROPHILS # (AUTO) 2.4 10^3/uL (1.5-6.6); NEUTROPHILS % (AUTO) 54.6 %; RED BLOOD COUNT 3.68 10^6/uL (4.20-5.40); RED CELL DISTRIBUTION WIDTH 14.4 % (12.0-15.0); UNCORRECTED WHITE BLOOD COUNT 4.3 x10^3/uL; WHITE BLOOD COUNT 4.3 x10^3/uL (4.8-10.8)
[2016-08-26 13:02] LABS: ALBUMIN/GLOBULIN RATIO 1.6 (1.0-2.2); BILIRUBIN,TOTAL 0.5 mg/dL (0.2-1.0); CALCIUM 9.5 mg/dL (8.5-10.3); CREATININE 0.8 mg/dL (0.4-1.0); POTASSIUM 4.3 mmol/L (3.5-5.0); TOTAL PROTEIN 7.1 g/dL (6.7-8.2)
--- NOTE | 2016-08-26 13:30 | Discharge Plan ---
Discharge Plan Disposition: 01 Home, Self Care Condition: Stable Diet: Regular Activity Restrictions: Activity as Tolerated Shower Restrictions: No Driving Restrictions: No Assistance Devices: Walker Weight Bearing: Full Weight Instruction Topics: TIA, Blockage Carotid Artery, Transient Ischemic Attack Dc Additional Instructions or Follow Up instructions: With hemorrhagic stroke in the past, blood thinner is problematic, Please see PCP in one week, see neurologist in two weeks, discuss all medical issues. Outpt for ECHO and MRI Outpt PT walker Follow-Up Care: Outpatient Rehab - PT No Smoking: If you smoke, Please STOP! Call for help. Follow-up with: Lyle Bartlett MD [Primary Care Provider] -
[2016-08-26 14:11] VITALS: BP 130/79
--- NOTE | 2016-08-27 07:24 | DISCHARGE SUMMARY ---
DATE OF ADMISSION: 08/25/2016 DATE OF DISCHARGE: 08/26/2016 TIME: 4:00 p.m. CC: Dr. Bartlett, Dr. Rondon PRIMARY CARE PHYSICIAN: Lyle Bartlett MD. NEUROLOGIST: Deshawn Rondon MD. ADMISSION DIAGNOSES 1. Transient ischemic attack. 2. Frequent falls. 3. Hypertension. 4. Hyperlipidemia. 5. Depression. 6. Gastroesophageal reflux disease. DISCHARGE DIAGNOSES 1. Transient ischemic attack, resolved. 2. Frequent falls, out-patient PT and walker 3. Hypertension, stable 4. Hyperlipidemia, home medication control 5. Depression. stable 6. Gastroesophageal reflux disease. home medication control HISTORY OF PRESENT ILLNESS: The patient had a CT and carotid ultrasound in the hospital. CT of the head showed no acute deformity. Carotid ultrasound of the neck showed less than 50% of stenosis in bilateral internal carotids. The patient's discharge disposition would be to home with outpatient PT. The patient came here with clinical course; Pt report she can not wait into next day for MRI, ECHO. She request to do outpatient MRI, ECHO. She want to de D/C on 08/26/16. In the ER, the patient reported weakness on her knee, cracking left foot, and left-sided headache. patient's report pt had chronic headache. In my assessment to patient, The patient's symptoms appears from her chronic uncovered medical condition from a major hemorrhagic stroke at 2008. The patient denies any vision change, facial dropping, any acute sense or motor focal deficits now. Denying any abnormal bowel movement, or urination control. No seizure, no chest pain, no shortness of breath. The patient requests discharge to home today. The patient finished CT and carotid in hospital. The patient requests she wanted to be discharged to home with outpatient for MRI and echo. The patient's vital signs are stable. The patient's lab tests are unremarkable except mild to moderate elevated Cholesterol and LDL, per patient report, this was her chronic condition, and denies further intervention until she discuss with her PCP. The patient is advised to follow with her PCP and neurologist, PCP in 1 week, neurologist in 2 weeks. The patient's goals are to schedule outpatient MRI and echo. We did schedule these test for patient before she was discharged, and ordered a front-wheeled walker to patient. The patient is also advised to do outpatient PT from her PCP. All of the patient's questions and concerns from her family are answered. ALLERGIES 1. ACYCLOVIR. 2. IODINE. 3. MORPHINE. 4. OXYCODONE. 5. STATIN. 6. SUMATRIPTAN. 7. SHELLFISH. MEDICATIONS The patient will be resumed her home medications. Her home medications including : 1. Vitamin D3, 5000 unit po daily 2. Trazodone, 50 mg po HS 3. Ditropan, 5 mg PO bid PRN 4. Lamictal, 300 mg PO bid 5. Sertraline, 100mg po daily 6. Omeprazole, 20 mg PO bid 7. Metoprolol, 50 mg po daily 8. Ativan, 0.5-1 mg po daily 9. Lisinopril, 20 mg po daily 10. Keppra, 1000 mg po bid Patient is referred to home medications. patient in 2008 had a major hemorrhagic stroke, so the patient is not on any blood thinner on her home medication list. I discussed with patient and her about the benefit and risk of blood thinner. Patient prefer to discuss with her PCP and neurologist to determine if on any blood thinner. The patient is also advised to see her PCP and neurologist for this medical issue. All patient's and her 's questions are answered. Patient discharge activity as tolerated, with regular diet. DISCHARGE TIME: 50 minutes or more. JOB #: [id number] EXT JOB #:[id number] [email or web address]
--- NOTE | 2016-08-27 08:40 | XRAY Preliminary Report ---
Exam: XR Chest 1 View IMPRESSION: No definite acute findings noted. When the patient is clinically stable suggest follow-up by repeat chest PA and lateral. [facility] SITE ID: [id number]
--- NOTE | 2016-08-27 08:43 | XRAY Report ---
EXAM: CHEST RADIOGRAPHY EXAM DATE: 08/25/2016 02:09 PM. CLINICAL HISTORY: Hypoxemia. COMPARISON: 02/11/2016, 02/06/2016 TECHNIQUE: 1 view. FINDINGS: Lungs/Pleura: Nodularity seen over the mid chest bilaterally, similar to 02/06/2016. No other focal o pacities evident. No pleural effusion. No pneumothorax. Mediastinum: Within exam limitations, cardiomediastinal contour is normal. Other: S-shaped thoracolumbar scoliosis. Surgical anchors right humeral head. IMPRESSION: No definite acute findings noted. When the patient is clinically stable suggest follow-up by repeat chest PA and lateral. [facility] Referring Provider Line: [phone] SITE ID: [id number]
== END 2016-08-26 14:49 | disposition home or self-care (01) ==
LOC: ED 13:15 → MS 15:47
PROVIDERS: ADMIT Nurse Practitioner Acute Care; ATTEND Nurse Practitioner Gerontology
DX: G45.9 Transient cerebral ischemic attack, unspecified (principal); I10 Essential (primary) hypertension; E78.5 Hyperlipidemia, unspecified; F32.9 Major depressive disorder, single episode, unspecified; K21.9 Gastro-esophageal reflux disease without esophagitis; I69.298 Other sequelae of other nontraumatic intracranial hemorrhage; G40.909 Epilepsy, unspecified, not intractable, without status epilepticus; M25.551 Pain in right hip; R19.7 Diarrhea, unspecified; G47.00 Insomnia, unspecified; N32.81 Overactive bladder; Z91.81 History of falling; Z87.891 Personal history of nicotine dependence; Z79.899 Other long term (current) drug therapy; R40.2432 Glasgow coma scale score 3-8, at arrival to emergency department
CPT/HCPCS: 36415; 70450; 71010; 73502; 80053; 80061; 82550; 82553; 83690; 83735; 84484; 85025; 85610; 86140; 93005; 93880; 97161; 99284; 99285; A9270; G0378; G0480; G8978; G8979; G8980; 80320

== ENCOUNTER 2016-08-27 10:01 | Outpatient (CLI) | payer MEDICARE, OTHER ==
[2016-08-27] MEDS ORDERED: GADOBUTROL 7.5 MMOL/7.5 ML VIAL IVP ONE ×2 (11:27)
--- NOTE | 2016-08-27 12:05 | MRI Preliminary Report ---
Exam: MRI Brain W/WO IMPRESSION: 1. Small new lesion in the medial right cerebral hemisphere in the region of the cingulate gyrus ther e appears to be a small amount of hemorrhage and edema. No associated enhancing mass. This may repres ent a small spontaneous degenerative or hypertensive hemorrhage. Hemorrhagic conversion of a small in farct is possible but less likely. An underlying brain lesion or associated enhancement is not identi fied. 2. Intracranial MRI findings and abnormalities as previously reported otherwise appear stable. [facility] SITE ID: [id number]
--- NOTE | 2016-08-27 12:51 | MRI Report ---
EXAM: MRI BRAIN WITHOUT AND WITH CONTRAST EXAM DATE: 08/27/2016 11:32 AM. CLINICAL HISTORY: TIA. COMPARISON: 03/05/2012. TECHNIQUE: Multiplanar, multisequence T1-weighted and fluid-sensitive MR sequences of the brain were performed. Sequences optimized for routine evaluation. Other: None. Without and with IV Contrast: Wit hout and with 5 mm Gadavist. FINDINGS: There is a new lesion in the medial right cerebral hemisphere in the region of the cingulate gyrus. T his lesion is approximately 6 mm in diameter with mild surrounding edema. There is accompanying small amorphous abnormal gradient echo hypointensity and diffusion hyperintensity, though ADC map hypointe nsity to indicate restricted diffusion is difficult to definitely confirm. This new lesion does not s how associated enhancement. There is minimal accompanying T1 hyperintensity precontrast. Findings are consistent with a small focus of subcortical hemorrhage. Stable chronic findings of old hemorrhagic injury/infarct in the right posterior cerebral hemisphere with stable chronic encephalomalacia, gliosis, and chronic hemosiderin staining. Mild diffuse atrophy. Again seen are findings of multifocal chronic-appearing cerebral white matter d isease, likely related to chronic microangiopathy. No mass effect, midline shift or obstructive hydrocephalus, ventriculomegaly is more likely from prog ressive atrophy than hydrocephalus. No other evidence for intracranial enhancing or space-occupying mass. IMPRESSION: 1. Small new lesion in the medial right cerebral hemisphere in the region of the cingulate gyrus wher e there appears to be a small amount of hemorrhage and edema. No associated enhancing mass. This may represent a small spontaneous degenerative or hypertensive hemorrhage. Hemorrhagic conversion of a sm all infarct is possible, but less likely. An underlying brain lesion or associated enhancement is not identified. 2. Intracranial MRI findings and abnormalities as previously reported otherwise appear stable. CRITICAL TEST results communicated directly by telephone to nurses medical assistants phlebotomists, Krupa Rojas for t he ordering provider, Nicole Hicks PA-C, at 12:03 PM 08/27/2016. [facility] Referring Provider Line: [phone] SITE ID: [id number]
== END 2016-08-27 10:02 | disposition home or self-care (01) ==
LOC: DI 10:01
PROVIDERS: ATTEND Physician Assistant Medical
DX: G93.9 Disorder of brain, unspecified (principal); I61.9 Nontraumatic intracerebral hemorrhage, unspecified
CPT/HCPCS: 70553; A9585

== ENCOUNTER 2016-08-27 15:41 | Outpatient (CLI) | payer MEDICARE, OTHER | END 2016-08-27 15:42 | disposition short-term general hospital (02) | DX: R93.0 Abnormal findings on diagnostic imaging of skull and head, not elsewhere classified (principal) | CPT/HCPCS: A0170; A0425; A0427 ==

== ENCOUNTER 2016-09-15 15:01 | Outpatient (CLI) | payer MEDICARE, OTHER ==
--- NOTE | 2016-09-16 10:26 | CT Report ---
CT BRAIN WITHOUT CONTRAST: 09/15/2016 CLINICAL INDICATION: Followup hemorrhage from MRI 08/27/2016. TECHNIQUE: Axial CT images of the brain were obtained without contrast. Coronal reconstructions were performed. In accordance with CT protocol optimization, one or more of the following dose reduction techniques were utilized for this exam: automated exposure control, adjustment of mA and/or KV based on patient size, or use of iterative reconstructive technique. COMPARISON: MRI 08/27/2016, CT 08/25/2016. FINDINGS: Previously noted right posterior parietal lobe infarction is unchanged, with dystrophic calcification. The tiny parenchymal hemorrhage in the right medial cingulate gyrus has resolved. No new hemorrhage is identified. The basilar cisterns are patent. The visualized orbital contents and paranasal sinuses are unremarkable. IMPRESSION: RESOLUTION OF TINY PARENCHYMAL HEMORRHAGE IN THE RIGHT CINGULATE GYRUS FROM MRI 08/27/2016. STABLE RIGHT PARIETAL LOBE INFARCTION. NO SIGNIFICANT INTERVAL CHANGE. JOB #: [id number] EXT JOB #: [id number] [facility]
== END 2016-09-15 15:02 | disposition home or self-care (01) ==
LOC: DI 15:01
PROVIDERS: ATTEND Psychiatry & Neurology Neurology
DX: I61.8 Other nontraumatic intracerebral hemorrhage (principal)
CPT/HCPCS: 70450

== ENCOUNTER 2017-01-28 10:07 | Outpatient (CLI) | payer MEDICARE, OTHER ==
--- NOTE | 2017-01-29 15:38 | DEXA Report ---
DEXA SCAN: 01/28/2017 HISTORY: Osteopenia, on seizure medications. TECHNIQUE: Dual energy x-ray absorptiometry (DXA) was performed on a [employer] system. Regions measured are the AP spine, femoral neck, and, if needed, forearm. NOTE: The values for the lumbar spine may be artificially elevated due to degenerative change. COMPARISON: None. In accordance with the International Society for Clinical Densitometry (ISCD) guidelines, data from previous exams may be reanalyzed using current recommendations and techniques. This is done to allow a more accurate basis for comparison with the current study. FINDINGS LUMBAR SPINE DATA: REGION BMD (g/cm/cm) T-SCORE Z-SCORE L1 1.009 -1.0 1.3 L2 1.352 1.3 3.6 L3 1.041 -1.3 1.0 L4 --- --- --- TOTAL L1-L3 1.135 -0.3 2.0 NOTE: All evaluable vertebrae are used for classification. HIP DATA: REGION BMD (g/cm/cm) T-SCORE Z-SCORE Neck 0.764 -2.0 0.3 TOTAL 0.713 -2.3 -0.2 NOTE: The femoral neck or total proximal femur, whichever is lowest, is used for classification. IMPRESSION THE WHO CLASSIFICATION BASED ON THE INTERNATIONAL REFERENCE STANDARD: OSTEOPENIA. FRACTURE RISK: INCREASED. RECOMMENDATION: Patients with diagnosis of osteoporosis or osteopenia should have regular bone mineral density assessment. For those eligible for Medicare, routine testing is allowed once every 2 years. Testing frequency can be increased for patients who have rapidly progressing disease or for those who are receiving medical therapy to restore bone mass. COMMENT: World Health Organization (WHO) definitions for osteoporosis and osteopenia: NORMAL BMD: T-score at -1.0 or higher, fracture risk is low. OSTEOPENIA BMD: T-score between -1.0 and -2.5, fracture risk is increased. OSTEOPOROSIS BMD: T-score at -2.5 or lower, fracture risk high. National Osteoporosis Foundation recommends: 1. Obtain adequate dietary calcium (at least 1200 mg per day) and vitamin D (400 -800 international units per day). 2. Participate, as appropriate, in regular weightbearing and muscle- strengthening exercise. 3. Avoid tobacco use and reduce alcohol and caffeine intake. 4. For more detailed information see the website at www.NOF.org. MTDD
== END 2017-01-28 10:08 | disposition home or self-care (01) ==
LOC: DI 10:07
PROVIDERS: ATTEND Psychiatry & Neurology Neurology
DX: M85.88 Other specified disorders of bone density and structure, other site (principal)
CPT/HCPCS: 77080

== ENCOUNTER 2017-02-18 08:30 | Outpatient (CLI) | payer MEDICARE, OTHER ==
[2017-02-18 11:21] LABS: BASOPHILS % (AUTO) 0.6 %; EOSINOPHILS # (AUTO) 0.1 10^3/uL (0.0-0.7); EOSINOPHILS % (AUTO) 1.4 %; HGB - HEMOGLOBIN 11.5 g/dL (12.0-16.0); LYMPHOCYTES % (AUTO) 17.7 %; MEAN CORPUSCULAR HEMOGLOBIN 30.6 pg (27.0-31.0); MEAN CORPUSCULAR HGB CONC 33.9 g/dL (32.0-36.0); MEAN CORPUSCULAR VOLUME 90.3 fL (81.0-99.0); MEAN PLATELET VOLUME 7.3 fL (7.9-10.8); MONOCYTES # (AUTO) 0.5 10^3/uL (0.0-1.0); MONOCYTES % (AUTO) 8.1 %; NEUTROPHILS # (AUTO) 4.2 10^3/uL (1.5-6.6); NEUTROPHILS % (AUTO) 72.2 %; RED BLOOD COUNT 3.76 10^6/uL (4.20-5.40); RED CELL DISTRIBUTION WIDTH 12.8 % (12.0-15.0); UNCORRECTED WHITE BLOOD COUNT 5.8 x10^3/uL; WHITE BLOOD COUNT 5.8 x10^3/uL (4.8-10.8)
[2017-02-18 11:50] LABS: ALBUMIN/GLOBULIN RATIO 1.6 (1.0-2.2); BILIRUBIN,TOTAL 0.4 mg/dL (0.2-1.0); BUN - BLOOD UREA NITROGEN 13 mg/dL (6-20); CALCIUM 9.5 mg/dL (8.5-10.3); CARBON DIOXIDE - CO2 29 mmol/L (21-32); CHLORIDE 98 mmol/L (101-111); CHOL/HDL RATIO 3.5 (<4.4); CHOLESTEROL 270 mg/dL; CREATININE 0.7 mg/dL (0.4-1.0); GFR - MDRD 82 (>89); GLUCOSE 82 mg/dL (70-100); HDL CHOLESTEROL 77 mg/dL; LDL/HDL RATIO 2.3 (<4.4); POTASSIUM 4.2 mmol/L (3.5-5.0); SODIUM 135 mmol/L (135-145); TOTAL PROTEIN 7.4 g/dL (6.7-8.2); TRIGLYCERIDES 92 mg/dL; VLDL CHOLESTEROL 18 mg/dL
== END 2017-02-18 08:31 | disposition home or self-care (01) ==
LOC: LAB.F 08:30
PROVIDERS: ATTEND Family Medicine
DX: E78.5 Hyperlipidemia, unspecified (principal); I10 Essential (primary) hypertension; K21.9 Gastro-esophageal reflux disease without esophagitis
CPT/HCPCS: 36415; 80053; 80061; 85025

== ENCOUNTER 2017-03-26 12:21 | Outpatient (CLI) | payer MEDICARE, OTHER ==
--- NOTE | 2017-03-26 16:20 | XRAY Report ---
DATE OF SERVICE: 03/26/2017 RIGHT HIP AND PELVIS: 03/26/2017 CLINICAL INDICATION: Right hip pain. COMPARISON: 08/25/2016 FINDINGS: Frontal view of the hips, pelvis and frogleg lateral view of the right hip demonstrate stable mild osteoarthritis. There is no evidence of interval fracture. Postoperative changes in the lower lumbar spine appear stable. IMPRESSION: MILD RIGHT HIP OSTEOARTHRITIS. TD: 03/26/2017 16:19
== END 2017-03-26 12:22 | disposition home or self-care (01) ==
LOC: DI 12:21
PROVIDERS: ATTEND Physician Assistant Medical
DX: M16.11 Unilateral primary osteoarthritis, right hip (principal)

== ENCOUNTER 2017-05-27 13:33 | Outpatient (CLI) | payer MEDICARE, OTHER ==
[2017-05-27 18:02] LABS: ALBUMIN 4.6 g/dL (3.2-5.5); ALBUMIN/GLOBULIN RATIO 1.5 (1.0-2.2); ALKALINE PHOSPHATASE 58 IU/L (42-121); ALT ALANINE AMINOTRANSFERASE 16 IU/L (10-60); AST ASPARTATE AMINOTRANSFERASE 23 IU/L (10-42); BILIRUBIN,TOTAL 0.3 mg/dL (0.2-1.0); BUN - BLOOD UREA NITROGEN 13 mg/dL (6-20); CALCIUM 9.6 mg/dL (8.5-10.3); CARBON DIOXIDE - CO2 28 mmol/L (21-32); CHLORIDE 98 mmol/L (101-111); CREATININE 0.8 mg/dL (0.4-1.0); GFR - MDRD 70 (>89); GLUCOSE 88 mg/dL (70-100); SODIUM 134 mmol/L (135-145); TOTAL PROTEIN 7.6 g/dL (6.7-8.2)
[2017-05-27 18:03] LABS: BASOPHILS % (AUTO) 0.5 %; EOSINOPHILS % (AUTO) 0.9 %; HGB - HEMOGLOBIN 11.4 g/dL (12.0-16.0); LYMPHOCYTES # (AUTO) 1.1 10^3/uL (1.5-3.5); LYMPHOCYTES % (AUTO) 21.9 %; MEAN CORPUSCULAR HEMOGLOBIN 30.4 pg (27.0-31.0); MEAN CORPUSCULAR HGB CONC 33.8 g/dL (32.0-36.0); MEAN CORPUSCULAR VOLUME 89.8 fL (81.0-99.0); MEAN PLATELET VOLUME 7.2 fL (7.9-10.8); MONOCYTES # (AUTO) 0.4 10^3/uL (0.0-1.0); MONOCYTES % (AUTO) 8.4 %; NEUTROPHILS # (AUTO) 3.4 10^3/uL (1.5-6.6); NEUTROPHILS % (AUTO) 68.3 %; PLT - PLATELET COUNT 223 10^3/uL (130-450); RED BLOOD COUNT 3.77 10^6/uL (4.20-5.40); RED CELL DISTRIBUTION WIDTH 13.1 % (12.0-15.0)
[2017-05-27 18:05] LABS: BILIRUBIN,URINE NEGATIVE (NEGATIVE); GLUCOSE, URINE (UA) NEGATIVE (NEGATIVE); KETONES,URINE (UA) NEGATIVE (NEGATIVE); LEUKOCYTE ESTERASE, URINE NEGATIVE (NEGATIVE); NITRITE,URINE NEGATIVE (NEGATIVE); OCCULT BLOOD,URINE NEGATIVE (NEGATIVE); PH,URINE 5.5 PH (5.0-7.5); PROTEIN,URINE NEGATIVE (NEGATIVE); UROBILINOGEN,URINE 0.2 (NORMAL) E.U./dL (NORMAL)
[2017-05-27 18:11] LABS: CARBAMAZEPINE (TEGRETOL) < 2.0 ug/mL
[2017-05-27 18:26] LABS: % IRON SATURATION 20 % (20-50); IRON 80 ug/dL (28-170); TOTAL IRON BINDING CAPACITY 392 ug/dL (250-450); TRANSFERRIN 280 mg/dL (192-382)
[2017-05-27 18:36] LABS: CLARITY,URINE CLEAR (CLEAR); RBC,URINE None Seen /HPF (0-5)
[2017-05-27 18:37] LABS: BACTERIA,URINE None Seen /HPF (None Seen); SQUAMOUS EPITHELIAL CELL,UR FEW Squamous (<= Few)
== END 2017-05-27 13:34 | disposition home or self-care (01) ==
LOC: LAB.F 13:33
PROVIDERS: ATTEND Physician Assistant Medical
DX: G40.909 Epilepsy, unspecified, not intractable, without status epilepticus (principal); D64.9 Anemia, unspecified; R53.83 Other fatigue; Z51.81 Encounter for therapeutic drug level monitoring; R41.3 Other amnesia
CPT/HCPCS: 36415; 80053; 80156; 80175; 81001; 83540; 84443; 84466; 85025; 87086

== ENCOUNTER 2017-09-16 16:00 | Outpatient (CLI) | payer MEDICARE, OTHER | END 2017-09-16 16:01 | disposition critical access hospital (66) | LOC: EMS 16:00 | PROVIDERS: ATTEND Surgery | DX: R25.9 Unspecified abnormal involuntary movements (principal) | CPT/HCPCS: A0425; A0429 ==

== ENCOUNTER 2017-09-16 16:16 | Emergency (ER) | payer MEDICARE, OTHER ==
[2017-09-16 18:15] LABS: BASOPHILS % (AUTO) 0.5 %; EOSINOPHILS % (AUTO) 0.4 %; HGB - HEMOGLOBIN 10.8 g/dL (12.0-16.0); LYMPHOCYTES # (AUTO) 0.5 10^3/uL (1.5-3.5); LYMPHOCYTES % (AUTO) 13.3 %; MEAN CORPUSCULAR VOLUME 91.1 fL (81.0-99.0); MEAN PLATELET VOLUME 6.4 fL (7.9-10.8); MONOCYTES # (AUTO) 0.3 10^3/uL (0.0-1.0); MONOCYTES % (AUTO) 7.1 %; NEUTROPHILS # (AUTO) 3.2 10^3/uL (1.5-6.6); NEUTROPHILS % (AUTO) 78.7 %; PLT - PLATELET COUNT 240 10^3/uL (130-450)
[2017-09-16 18:21] LABS: CALCIUM 9.4 mg/dL (8.5-10.3); CREATININE 0.6 mg/dL (0.4-1.0)
--- NOTE | 2017-09-16 18:24 | ED Physician Documentation ---
History of Present Illness - Stated complaint Stated Complaint: SZ - Chief complaint Chief Complaint: MHE - Additonal information Additional information: hx from pt and pt with seizures since a stroke several years ago has a neurologist on 2 seizure meds and compliant also has ativan PRN seizures she as in good health s fever JOHNSON neck stiffness new cough etc in the car wit SO developed an aura - something in vision on her right side took ativan but proceeded to have a generalized seizure - in her car east and had no injury , did not bite tongue and was not incontinent Review of Systems Constitutional: denies: Fever Cardiac: denies: Chest pain / pressure Respiratory: denies: Dyspnea, Cough GI: denies: Abdominal Pain, Nausea, Vomiting : denies: Incontinent Neurologic: reports: Seizure. denies: Focal weakness, Numbness, Headache, Head injury Endocrine: denies: Easy bruising / bleeding Immunocompromised: denies: Immunocompromised PD PAST MEDICAL HISTORY - Past Medical History Past Medical History: Yes Cardiovascular: Hypertension, High cholesterol Respiratory: Asthma Neuro: CVA, Seizure disorder Endocrine/Autoimmune: None GI: GERD : Incontinence HEENT: Chronic vision loss Psych: Depression, Anxiety Musculoskeletal: Osteoarthritis Derm: None - Past Surgical History Past Surgical History: Yes General: Appendectomy Ortho: Carpal Tunnel surgery /[employer]PER[employer]: Oophrectomy - Present Medications Home Medications: Ambulatory Orders Medication Instructions Recorded Confirmed Metoprolol Succinate 50 mg PO DAILY 09/11/12 08/25/16 Sertraline [Zoloft] 100 mg PO DAILY 09/11/12 08/25/16 levETIRAcetam [Levetiracetam] 1,000 mg PO BID 09/11/12 08/25/16 traZODone [Desyrel] 50 mg PO HS 09/11/12 08/25/16 LORazepam [Lorazepam] 0.5 - 1 mg PO DAILY PRN 10/12/13 08/25/16 Lisinopril 20 mg PO DAILY 10/12/13 08/25/16 Omeprazole [PriLOSEC] 20 mg PO BID 06/14/14 08/25/16 lamoTRIgine [LaMICtal] 300 mg PO BID 02/06/16 08/25/16 Oxybutynin [Ditropan] 5 mg PO BID PRN 07/03/17 07/03/17 - Allergies Allergies/Adverse Reactions: Allergies Allergy/AdvReac Type Severity Reaction Status Date / Time acyclovir Allergy Unknown Verified 09/16/17 16:55 iodine Allergy unknown Verified 09/16/17 16:55 morphine Allergy unknown Verified 09/16/17 16:55 oxycodone HCl * Allergy Unknown Verified 09/16/17 16:55 [From Percodan] oxycodone terephthalate * Allergy Unknown Verified 09/16/17 16:55 [From Percodan] propoxyphene napsylate * Allergy unknown Verified 09/16/17 16:55 [From Darvocet-N 100] rosuvastatin calcium * Allergy Unknown Verified 09/16/17 16:55 [From Crestor] shellfish derived Allergy unknown Verified 09/16/17 16:55 sumatriptan [From Imitrex] Allergy Unknown Verified 09/16/17 16:55 sumatriptan succinate * Allergy Unknown Verified 09/16/17 16:55 [From Imitrex] - Social History Does the pt smoke?: No Smoking Status: Never smoker Does the pt drink ETOH?: No Does the pt have substance abuse?: No - Immunizations Immunizations are current?: Yes PD ED PE NORMAL - Vitals Vital signs reviewed: Yes - General General: Alert and oriented X 3 - HEENT HEENT: PERRL - Neck Neck: Supple, no meningeal sign - Cardiac Cardiac: RRR - Respiratory Respiratory: No respiratory distress, Clear bilaterally - Abdomen Abdomen: Soft, Non tender - Derm Derm: Normal color - Neuro Neuro: Alert and oriented X 3, shingle grader 2-12 intact, No motor deficit, No sensory deficit, Normal speech Eye Opening: Spontaneous Motor: Obeys Commands Verbal: Oriented GCS Score: 15 Results - Vitals Vitals: Vital Signs - 24 hr 09/16/17 09/16/17 09/16/17 16:30 16:58 17:30 Temperature 37.0 C 37.0 C Heart Rate 90 88 80 Respiratory 24 20 16 Rate Blood Pressure 138/81 H 120/80 131/66 H O2 Saturation 97 97 98 09/16/17 09/16/17 18:43 18:45 Temperature Heart Rate 72 69 Respiratory 17 16 Rate Blood Pressure 147/60 H 147/60 H O2 Saturation 98 98 Oxygen O2 Source [Without Activity] Room air O2 Source Room air - Labs Labs: Laboratory Tests 09/16/17 09/16/17 18:04 18:04 WBC 4.0 L RBC 3.50 L Hgb 10.8 L Hct 31.9 L MCV 91.1 MCH 31.0 MCHC 34.0 RDW 13.0 Plt Count 240 MPV 6.4 L Neut # (Auto) 3.2 Lymph # (Auto) 0.5 L Bradford # (Auto) 0.3 Eos # (Auto) 0.0 Baso # (Auto) 0.0 Absolute Nucleated RBC 0.00 Nucleated RBC % 0.0 Sodium 129 L Potassium 4.3 Chloride 93 L Carbon Dioxide 27 Anion Gap 9.0 BUN 11 Creatinine 0.6 Estimated GFR (MDRD) 97 Glucose 105 H Calcium 9.4 PD MEDICAL DECISION MAKING - ED course ED course: low sodium not new anemia not new seizure with a hx seizures on her meds and compliant with same no injury today todays seizure was longer than her nl, est 15 min pt already received benzos DIRECTOR GRAPHICS observed in ED and has no further seizure activity will dc with family to continue present meds and fup - Sepsis Event Vital Signs: Vital Signs - 24 hr 09/16/17 09/16/17 09/16/17 16:30 16:58 17:30 Temperature 37.0 C 37.0 C Heart Rate 90 88 80 Respiratory 24 20 16 Rate Blood Pressure 138/81 H 120/80 131/66 H O2 Saturation 97 97 98 09/16/17 09/16/17 18:43 18:45 Temperature Heart Rate 72 69 Respiratory 17 16 Rate Blood Pressure 147/60 H 147/60 H O2 Saturation 98 98 Oxygen O2 Source [Without Activity] Room air O2 Source Room air Departure - Departure Disposition: 01 Home, Self Care Clinical Impression: Seizure Condition: Good Instructions: ED Seizure Recurrent Follow-Up: Emerita Fall PA-C [Primary Care Provider] - Comments: Your labs are fine except for anemia and low sodium which are not new. You have recovered from the seizure. No more seizures have occurred. You were not injured I think it is safe for you to go home But because this seizure was longer and more severe than your prior seizures, I recommend that you follow up with your neurologist for further evaluation and care
[2017-09-16 18:44] VITALS: BP 147/60
== END 2017-09-16 19:25 | disposition home or self-care (01) ==
LOC: EDUNIT# → ED 16:16
DX: G40.909 Epilepsy, unspecified, not intractable, without status epilepticus (principal); D64.9 Anemia, unspecified; E87.1 Hypo-osmolality and hyponatremia; I10 Essential (primary) hypertension; E78.00 Pure hypercholesterolemia, unspecified; Z86.73 Personal history of transient ischemic attack (TIA), and cerebral infarction without residual deficits
CPT/HCPCS: 36415; 80048; 85025; 99283

== ENCOUNTER 2017-10-27 03:06 | Outpatient (CLI) | payer MEDICARE, OTHER | END 2017-10-27 03:07 | disposition critical access hospital (66) | LOC: EMS 03:06 | PROVIDERS: ATTEND Surgery | DX: S01.01XA Laceration without foreign body of scalp, initial encounter (principal); R55 Syncope and collapse; W06.XXXA Fall from bed, initial encounter; Y92.003 Bedroom of unspecified non-institutional (private) residence as the place of occurrence of the external cause ==

== ENCOUNTER 2017-10-27 03:25 | Emergency (ER) | payer MEDICARE, OTHER ==
[2017-10-27] MEDS ORDERED: ONDANSETRON ODT 4 MG TABLET TL STA ×2 (03:50→04:37)
--- NOTE | 2017-10-27 04:17 | ED Physician Documentation ---
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 sustained head laceration. Unsure if LOC. also c/o right hip pain (only on ROS; not offered as c/o in HPI). has pain limited to site of head laceration (right parietal scalp). Patient is not sure what caused her to fall. Review of Systems Eyes: reports: Reviewed and negative Cardiac: reports: Reviewed and negative Respiratory: reports: Reviewed and negative Skin: reports: Laceration (s) Musculoskeletal: reports: Joint pain (right hip) Neurologic: reports: Head injury. 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 - Present Medications Home Medications: Ambulatory Orders Medication Instructions Recorded Confirmed Metoprolol Succinate 50 mg PO DAILY 09/11/12 08/25/16 Sertraline [Zoloft] 100 mg PO DAILY 09/11/12 08/25/16 levETIRAcetam [Levetiracetam] 1,000 mg PO BID 09/11/12 08/25/16 traZODone [Desyrel] 50 mg PO HS 09/11/12 08/25/16 LORazepam [Lorazepam] 0.5 - 1 mg PO DAILY PRN 10/12/13 08/25/16 Lisinopril 20 mg PO DAILY 10/12/13 08/25/16 Omeprazole [PriLOSEC] 20 mg PO BID 06/14/14 08/25/16 lamoTRIgine [LaMICtal] 300 mg PO BID 02/06/16 08/25/16 Oxybutynin [Ditropan] 5 mg PO BID PRN 08/25/16 08/25/16 - Allergies Allergies/Adverse Reactions: Allergies Allergy/AdvReac Type Severity Reaction Status Date / Time acyclovir Allergy Unknown Verified 10/27/17 03:35 iodine Allergy unknown Verified 10/27/17 03:35 morphine Allergy unknown Verified 10/27/17 03:35 oxycodone HCl * Allergy Unknown Verified 10/27/17 03:35 [From Percodan] oxycodone terephthalate * Allergy Unknown Verified 10/27/17 03:35 [From Percodan] propoxyphene napsylate * Allergy unknown Verified 10/27/17 03:35 [From Darvocet-N 100] rosuvastatin calcium * Allergy Unknown Verified 10/27/17 03:35 [From Crestor] shellfish derived Allergy unknown Verified 10/27/17 03:35 sumatriptan [From Imitrex] Allergy Unknown Verified 10/27/17 03:35 sumatriptan succinate * Allergy Unknown Verified 10/27/17 03:35 [From Imitrex] - Social History Does the pt smoke?: No Smoking Status: Never smoker Does the pt drink ETOH?: No Does the pt have substance abuse?: No - Immunizations Immunizations are current?: Yes PD ED PE NORMAL - Vitals Vital signs reviewed: Yes - General General: Alert and oriented X 3, No acute distress, Well developed/nourished, Other (c-spine collar in place) - HEENT HEENT: PERRL, EOMI - Neck Neck: Other (mild midline tenderness posterior neck without bony step off or crepitus (palpation performed with c-collar in place)) - Cardiac Cardiac: RRR - Respiratory Respiratory: No respiratory distress, Clear bilaterally - Back Back: No spinal TTP - Extremities Extremities: No deformity - Neuro Neuro: Alert and oriented X 3, mop worker 2-12 intact, No motor deficit, No sensory deficit, Normal speech Eye Opening: Spontaneous Motor: Obeys Commands Verbal: Oriented GCS Score: 15 PD ED PE EXPANDED - HEENT HEENT Visual: 1 - laceration (3 cm; no bony tenderness, no bony step-off, no crepitus) - Extremities Extremities: Tenderness (mild right hip tenderness to compression (from lateral aspect)), Limited ROM (right hip (pain with extension)). No: Swelling, Bruising Results - Vitals Vitals: Vital Signs - 24 hr 10/27/17 10/27/17 10/27/17 03:28 05:19 06:29 Temperature 36.3 C L Heart Rate 69 61 71 Respiratory 18 16 16 Rate Blood Pressure 139/106 H 105/54 L 112/61 O2 Saturation 100 100 100 Oxygen O2 Source [Without Activity] Room air O2 Source Room air - Rads (name of study) right hip xrays Radiology: Prelim report reviewed, See rad report CT cervical spine Radiology: Prelim report reviewed, See rad report Procedures - Laceration (location) Scalp right Length in cm: 3 Wound type: Linear Neurovascular status: Sensory intact, Motor intact, Vascular intact Anesthesia: Lidocaine 1% Wound Preparation: Chlorhexadine, Irrigated copiously NS, Wound explored, To the base Skin layer closure: Lilly Other: Patient tolerated well, No complications, Neurovascular intact, Tetanus UTD Complexity: Simple PD MEDICAL DECISION MAKING - ED course Complexity details: reviewed results, re-evaluated patient, considered differential, d/w patient, d/w family - Sepsis Event Vital Signs: Vital Signs - 24 hr 10/27/17 10/27/17 10/27/17 03:28 05:19 06:29 Temperature 36.3 C L Heart Rate 69 61 71 Respiratory 18 16 16 Rate Blood Pressure 139/106 H 105/54 L 112/61 O2 Saturation 100 100 100 Oxygen O2 Source [Without Activity] Room air O2 Source Room air Departure - Departure Disposition: 01 Home, Self Care Clinical Impression: Laceration, Fall Condition: Good Instructions: ED Laceration Scalp Stitch Or Stap Follow-Up: Emerita Fall PA-C [Primary Care Provider] - (1 week for removal of lilly ) Discharge Date/Time: 10/27/17:42
--- NOTE | 2017-10-27 05:21 | XRAY Report ---
Reason: fall, right hip pain Procedure Date: 10/27/2017 Accession Number: [id number] / [id number] Procedure: XR - Hip w/Pelvis 2-3V RT CPT Code: FULL RESULT: EXAM: RIGHT HIP AND PELVIS RADIOGRAPHY EXAM DATE: 10/27/2017 05:14 AM. HISTORY: Fall, right hip pain. COMPARISONS: 03/26/2017. TECHNIQUE: 1 view of the pelvis and 1 view of the hip. FINDINGS: Bones: Osteopenia. No acute fracture seen. Joints: No dislocation. Mild degenerative changes in the hips. Degenerative changes and postoperative changes in the lower lumbar spine. Soft Tissues: Grossly unremarkable. IMPRESSION: 1. Osteopenia and degenerative changes. No acute fracture or dislocation seen. [facility]
[2017-10-27] MEDS ORDERED: LIDOCAINE 1% 2 ML VIAL SUBQ STA (05:27)
--- NOTE | 2017-10-27 05:33 | CT Report ---
Reason: fall, neck pain Procedure Date: 10/27/2017 Accession Number: [id number] / [id number] Procedure: CT - Cervical Spine W/O CPT Code: FULL RESULT: EXAM: CT CERVICAL SPINE WITHOUT CONTRAST DATE: 10/27/2017 05:12 AM. HISTORY: Fall, neck pain. COMPARISONS: 10/12/2013. TECHNIQUE: Thin-section axial images were acquired of the cervical spine without contrast. Post-processing: Coronal and sagittal reformats. Other: None. In accordance with CT protocol optimization, one or more of the following dose reduction techniques were utilized for this exam: automated exposure control, adjustment of mA and/or KV based on patient size, or use of iterative reconstructive technique. FINDINGS: Alignment: Slight anterolisthesis at C4-C5, unchanged. Bones: No fracture or bone lesion. Interspace Levels/Facets: Degenerative disk space narrowing is most pronounced at C5-C6. Endplate osteophyte mildly narrows the central canal at this level. Mild right-sided foraminal stenosis at C3-C4, left-sided foraminal stenosis at C4-C5, moderate right-sided foraminal stenosis at C5-C6. Musculature: Normal. No fatty atrophy. Other: The paravertebral and prevertebral soft tissues are unremarkable. The lung apices are clear. IMPRESSION: Degenerative changes in the cervical spine appears stable since 10/12/2013. No fracture is identified. [facility]
[2017-10-27 06:30] VITALS: BP 112/61
== END 2017-10-27 06:42 | disposition home or self-care (01) ==
LOC: EDUNIT# → SUPCPDRO 03:25 → ED 03:25
DX: S01.01XA Laceration without foreign body of scalp, initial encounter (principal); W18.30XA Fall on same level, unspecified, initial encounter; I10 Essential (primary) hypertension; E78.00 Pure hypercholesterolemia, unspecified; Z86.73 Personal history of transient ischemic attack (TIA), and cerebral infarction without residual deficits
CPT/HCPCS: 12002; 72125; 73502; 99283; Q0162

== ENCOUNTER 2018-01-11 15:38 | Outpatient (CLI) | payer MEDICARE, OTHER ==
--- NOTE | 2018-01-12 09:36 | XRAY Report ---
Reason: PAIN IN THE COCCYX Procedure Date: 01/11/2018 Accession Number: [id number] / [id number] Procedure: XR - Sacrum/Coccyx CPT Code: FULL RESULT: EXAM: SACRUM AND COCCYX RADIOGRAPHY EXAM DATE: 01/11/2018 04:01 PM. HISTORY: Pain in the coccyx. COMPARISONS: Hip w/pelvis 2-3v right 10/27/2017 4:46 AM. TECHNIQUE: 2 views. FINDINGS: Alignment: Normal. The sacrum and coccyx are normally aligned. Bones: Orthopedic hardware in the lower spine/sacrum is stable in configuration. No fracture or bone lesion. Joints: Normal. The sacroiliac joints and visualized hips are within normal limits accounting for expected degenerative joint disease of the hips. Soft Tissues: Unremarkable. IMPRESSION: No coccyx fracture is identified. [facility]
== END 2018-01-11 15:39 | disposition home or self-care (01) ==
LOC: DI 15:38
PROVIDERS: ATTEND Nurse Practitioner Family
DX: M53.3 Sacrococcygeal disorders, not elsewhere classified (principal)
CPT/HCPCS: 72220

== ENCOUNTER 2019-01-18 12:19 | Outpatient (CLI) | payer MEDICARE, OTHER | END 2019-01-18 12:20 | disposition critical access hospital (66) | LOC: EMS 12:19 | PROVIDERS: ATTEND Surgery | DX: M54.2 Cervicalgia (principal); M54.5 Low back pain; W07.XXXA Fall from chair, initial encounter; Y92.009 Unspecified place in unspecified non-institutional (private) residence as the place of occurrence of the external cause | CPT/HCPCS: A0425; A0429 ==

== ENCOUNTER 2019-01-18 12:40 | Emergency (ER) | payer MEDICARE, OTHER ==
--- NOTE | 2019-01-18 12:47 | ED Physician Documentation ---
PD HPI HEAD INJURY - Stated complaint Stated Complaint: GLF - History obtained from History obtained from: Patient, EMS - History of Present Illness Mechanism of head injury: Fell (This is a somewhat demented 78-year-old woman who by report fell out of the chair onto the ground. She complains of posterior neck and head pain. She is not anticoagulated. No other injuries.) Review of Systems Cardiac: denies: Chest pain / pressure Respiratory: denies: Dyspnea, Cough GI: reports: Nausea (She got nauseous for EMS on the way and, given the timing presume it was from riding backwards in the ambulance.). denies: Abdominal Pain Neurologic: reports: Headache, Head injury. denies: LOC PD PAST MEDICAL HISTORY - Past Medical History Cardiovascular: Hypertension, High cholesterol Respiratory: Asthma Neuro: CVA, Seizure disorder Endocrine/Autoimmune: None GI: GERD : Incontinence HEENT: Chronic vision loss Psych: Depression, Anxiety Musculoskeletal: Osteoarthritis Derm: None - Past Surgical History Past Surgical History: Yes General: Appendectomy Ortho: Carpal Tunnel surgery /RN ADMISSION: Oophrectomy - Present Medications Home Medications: Ambulatory Orders Medication Instructions Recorded Confirmed Metoprolol Succinate 50 mg PO DAILY 09/11/12 08/25/16 Sertraline [Zoloft] 100 mg PO DAILY 09/11/12 08/25/16 levETIRAcetam [Levetiracetam] 1,000 mg PO BID 09/11/12 08/25/16 traZODone [Desyrel] 50 mg PO HS 09/11/12 08/25/16 LORazepam [Lorazepam] 0.5 - 1 mg PO DAILY PRN 10/12/13 08/25/16 Lisinopril 20 mg PO DAILY 10/12/13 08/25/16 Omeprazole [PriLOSEC] 20 mg PO BID 06/14/14 08/25/16 lamoTRIgine [LaMICtal] 300 mg PO BID 02/06/16 08/25/16 Oxybutynin [Ditropan] 5 mg PO BID PRN 08/25/16 08/25/16 - Allergies Allergies/Adverse Reactions: Allergies Allergy/AdvReac Type Severity Reaction Status Date / Time acyclovir Allergy Unknown Verified 01/18/19 12:46 iodine Allergy unknown Verified 01/18/19 12:46 morphine Allergy unknown Verified 01/18/19 12:46 oxycodone HCl * Allergy Unknown Verified 01/18/19 12:46 [From Percodan] oxycodone terephthalate * Allergy Unknown Verified 01/18/19 12:46 [From Percodan] propoxyphene napsylate * Allergy unknown Verified 01/18/19 12:46 [From Darvocet-N 100] rosuvastatin calcium * Allergy Unknown Verified 01/18/19 12:46 [From Crestor] shellfish derived Allergy unknown Verified 01/18/19 12:46 sumatriptan [From Imitrex] Allergy Unknown Verified 01/18/19 12:46 sumatriptan succinate * Allergy Unknown Verified 01/18/19 12:46 [From Imitrex] - Social History Does the pt smoke?: No Smoking Status: Never smoker Does the pt drink ETOH?: No Does the pt have substance abuse?: No - Immunizations Immunizations are current?: Yes PD ED PE NORMAL - Vitals Vital signs reviewed: Yes - General General: No acute distress, Well developed/nourished, Other (She is alert and oriented to person and place, but not date. 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, No motor deficit, No sensory deficit Eye Opening: Spontaneous Motor: Obeys Commands Results - Vitals Vitals: Vital Signs - 24 hr 01/18/19 01/18/19 12:46 14:24 Temperature 36.9 C Heart Rate 70 75 Respiratory 18 18 Rate Blood Pressure 146/69 H 125/69 O2 Saturation 97 97 Oxygen O2 Source [] Room air O2 Source Room air - Rads (name of study) CT Head and Cspine Radiology: EMP read contemporaneously (Right parietal stroke and degenerative changes of the neck without acute findings) PD MEDICAL DECISION MAKING - ED course ED course: Demented 78-year-old woman had a fall out of a chair, some evidence of head and neck injury but CT imaging was negative for same and the c-collar was removed and she was nontender with full range of motion of the neck. Departure - Departure Disposition: 01 Home, Self Care Clinical Impression: Injury of head and neck Qualifiers: Encounter type: initial encounter Qualified Code(s): S09.90XA - Unspecified injury of head, initial encounter Condition: Good Record reviewed to determine appropriate education?: Yes Instructions: ED Head Injury Closed Comments: Your blood pressure was elevated today on check into the emergency department. This does not mean that you have hypertension, it is a common phenomenon to come to the emergency department and have elevated blood pressure. I recommend that you see your primary care physician within the week to have it rechecked when you are feeling better. Discharge Date/Time: 01/18/19 14:24
--- NOTE | 2019-01-18 13:52 | CT Report ---
Reason: head inj Procedure Date: 01/18/2019 Accession Number: [id number] / [id number] Procedure: CT - HEAD WO CPT Code: Final Report FULL RESULT: EXAM: CT HEAD EXAM DATE: 01/18/2019 01:27 PM. CLINICAL HISTORY: Head injury. COMPARISON: HEAD W/O 09/15/2016 3:21 PM. TECHNIQUE: Multiaxial CT images were obtained from the foramen magnum to the vertex. Reformats: Sagittal and coronal. IV contrast: None. In accordance with CT protocol optimization, one or more of the following dose reduction techniques were utilized for this exam: automated exposure control, adjustment of mA and/or KV based on patient size, or use of iterative reconstructive technique. FINDINGS: Parenchyma: No intraparenchymal hemorrhage. No evidence of mass or midline shift. Stable encephalomalacia involving the right parietal lobe consistent with old infarct. Elsewhere, cortical be-white differentiation is distinct. Extraaxial Spaces: Normal for age. No subdural or epidural collections identified. Ventricles: Normal in size and position. Sinuses and Orbits: Imaged paranasal sinuses, orbits, and mastoids show no significant abnormality. Bones: No evidence of fracture or calvarial defect. Other: None. IMPRESSION: No acute intracranial hemorrhage or calvarial fracture identified. Old right parietal lobe infarct. RADIA
--- NOTE | 2019-01-18 14:00 | CT Report ---
Reason: head inj Procedure Date: 01/18/2019 Accession Number: [id number] / [id number] Procedure: CT - CERVICAL SPINE WO CPT Code: Final Report FULL RESULT: EXAM: CT CERVICAL SPINE WITHOUT CONTRAST DATE: 01/18/2019 01:27 PM. HISTORY: Head injury. Fall, neck pain. COMPARISONS: CERVICAL SPINE W/O 10/27/2017 5:06 AM. TECHNIQUE: Thin-section axial images were acquired of the cervical spine without contrast. Post-processing: Coronal and sagittal reformats. Other: None. In accordance with CT protocol optimization, one or more of the following dose reduction techniques were utilized for this exam: automated exposure control, adjustment of mA and/or KV based on patient size, or use of iterative reconstructive technique. FINDINGS: No acute fracture identified. Stable borderline grade 1 anterolisthesis of C4 on C5. Moderate disk space narrowing at C5-C6 without significant change. No new areas of pathologic subluxation. Moderate hypertrophic changes of the facet articulations in the mid cervical spine as before. No abnormal prevertebral soft tissue swelling. IMPRESSION: Stable moderate degenerative changes of the mid cervical spine. Stable borderline grade 1 anterolisthesis C4 on C5. No acute bone processes detected. No fracture identified. RADIA
[2019-01-18 14:24] VITALS: BP 125/69
== END 2019-01-18 14:24 | disposition home or self-care (01) ==
LOC: EDUNIT# → ED 12:40
DX: S09.90XA Unspecified injury of head, initial encounter (principal); S19.9XXA Unspecified injury of neck, initial encounter; W07.XXXA Fall from chair, initial encounter; M50.321 Other cervical disc degeneration at C4-C5 level; I10 Essential (primary) hypertension; F03.90 Unspecified dementia, unspecified severity, without behavioral disturbance, psychotic disturbance, mood disturbance, and anxiety
CPT/HCPCS: 70450; 72125; 99282; 99284

== ENCOUNTER 2019-04-23 15:40 | Outpatient (CLI) | payer MEDICARE, OTHER | END 2019-04-23 15:41 | disposition EMS.NT | LOC: EMS 15:40 | PROVIDERS: ATTEND Surgery | DX: Z03.89 Encounter for observation for other suspected diseases and conditions ruled out (principal) ==

== ENCOUNTER 2019-04-23 19:25 | Outpatient (CLI) | payer MEDICARE, OTHER | END 2019-04-23 23:59 | disposition critical access hospital (66) | LOC: EMS 19:25 | PROVIDERS: ATTEND Surgery | DX: R41.82 Altered mental status, unspecified (principal); R46.89 Other symptoms and signs involving appearance and behavior; R51 Headache; Z03.89 Encounter for observation for other suspected diseases and conditions ruled out | CPT/HCPCS: A0425; A0427 ==

== ENCOUNTER 2019-04-23 19:40 | Emergency (ER) | payer MEDICARE, OTHER ==
[2019-04-23] MEDS ORDERED: SODIUM CHLORIDE 0.9% 1,000 ML IV ONE (19:50)
[2019-04-23] MEDS ORDERED: IOVERSOL 320 100 ML VIAL IVP ONE (19:55)
[2019-04-23] MEDS ORDERED: ASPIRIN CHEW 81 MG TABLET PO STA (20:01)
[2019-04-23 20:13] LABS: BASOPHILS % (AUTO) 0.5 %; EOSINOPHILS # (AUTO) 0.1 10^3/uL (0.0-0.7); EOSINOPHILS % (AUTO) 0.9 %; HGB - HEMOGLOBIN 11.1 g/dL (12.0-16.0); LYMPHOCYTES # (AUTO) 1.2 10^3/uL (1.5-3.5); LYMPHOCYTES % (AUTO) 20.7 %; MEAN CORPUSCULAR HEMOGLOBIN 30.5 pg (27.0-31.0); MEAN CORPUSCULAR HGB CONC 32.6 g/dL (32.0-36.0); MEAN CORPUSCULAR VOLUME 93.4 fL (81.0-99.0); MEAN PLATELET VOLUME 8.8 fL (7.9-10.8); MONOCYTES # (AUTO) 0.5 10^3/uL (0.0-1.0); MONOCYTES % (AUTO) 8.6 %; PLT - PLATELET COUNT 194 10^3/uL (130-450); RED BLOOD COUNT 3.64 10^6/uL (4.20-5.40); WHITE BLOOD COUNT 5.8 x10^3/uL (4.8-10.8)
[2019-04-23 20:18] LABS: PT - PROTHROMBIN TIME 11.1 secs (9.9-12.6)
--- NOTE | 2019-04-23 20:20 | ED Physician Documentation ---
PD HPI FOCAL NEURO - Stated complaint Stated Complaint: STROKE LIKE SYMPTOMS - Chief complaint Chief Complaint: Neuro - History obtained from History obtained from: EMS - Additional information Additional information: Patient is brought to the emergency department by EMS for chief complaint of aphasia and left upper extremity weakness. Medics state that the symptoms started at about 1815, and that the first noticed that the patient seemed to be having more confusion than usual. 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 Medics state that the patient has seemed to become a little more a phasic than she previously was in route. They are unsure of any other symptoms for the patient at this time she has not been able to express herself. arrives a little later and states that the patient has been agitated throughout the day and that he actually had to give HER-2 doses of Ativan 1 mg each. The patient has not had any other specific symptoms that he knows of. He states that she has been wanting to leave the house and is been increasingly agitated and that he has gotten into vocal altercations with her over trying to keep her from running off or getting up when he feels it is unsafe. He states that when they sat down to eat dinner around [phone], he noticed that the patient did not seem to comprehend how to feed herself so he had to feed her himself. He states she got her last dose of Ativan somewhere between 1600 and 1700. Patient after eating wished to get up, but states that the patient's legs seemed very weak and like they could not hold her up. The patient was not able to walk or transfer herself and the had to do this himself. He states that he did not notice any focal weakness. He states that he is not aware of the patient normally having left arm weakness since her stroke in 2008. The patient normally is able to articulate, but states she has not been able to. Patient has not had any fevers that the knows of. No vomiting or diarrhea. No cough or obvious dyspnea. Review of Systems Ten Systems: 10 systems reviewed and negative Constitutional: reports: Reviewed and negative Eyes: reports: Reviewed and negative Ears: reports: Reviewed and negative Nose: reports: Reviewed and negative Throat: reports: Reviewed and negative Cardiac: reports: Reviewed and negative Respiratory: reports: Reviewed and negative GI: reports: Reviewed and negative : reports: Reviewed and negative Skin: reports: Reviewed and negative Musculoskeletal: reports: Reviewed and negative Neurologic: reports: Focal weakness, Difficulty speaking, Confused, Altered mental status Psychiatric: reports: Other (Agitation) Endocrine: reports: Reviewed and negative Immunocompromised: reports: Reviewed and negative PD PAST MEDICAL HISTORY - Past Medical History Cardiovascular: Hypertension, High cholesterol Respiratory: Asthma Neuro: Dementia, CVA, Seizure disorder Endocrine/Autoimmune: None GI: GERD : Incontinence HEENT: Chronic vision loss Psych: Depression, Anxiety Musculoskeletal: Osteoarthritis Derm: None - Past Surgical History Past Surgical History: Yes General: Appendectomy Ortho: Carpal Tunnel surgery /WELLNESS 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 - Present Medications Home Medications: Ambulatory Orders Medication Instructions Recorded Confirmed Metoprolol Succinate 50 mg PO DAILY 09/11/12 08/25/16 Sertraline [Zoloft] 100 mg PO DAILY 09/11/12 08/25/16 levETIRAcetam [Levetiracetam] 1,000 mg PO BID 09/11/12 08/25/16 traZODone [Desyrel] 50 mg PO HS 09/11/12 08/25/16 LORazepam [Lorazepam] 0.5 - 1 mg PO DAILY PRN 10/12/13 08/25/16 Lisinopril 20 mg PO DAILY 10/12/13 08/25/16 Omeprazole [PriLOSEC] 20 mg PO BID 06/14/14 08/25/16 lamoTRIgine [LaMICtal] 300 mg PO BID 02/06/16 08/25/16 Oxybutynin [Ditropan] 5 mg PO BID PRN 08/25/16 08/25/16 - Allergies Allergies/Adverse Reactions: Allergies Allergy/AdvReac Type Severity Reaction Status Date / Time acyclovir Allergy Unknown Verified 01/18/19 12:46 iodine Allergy unknown Verified 01/18/19 12:46 morphine Allergy unknown Verified 01/18/19 12:46 oxycodone HCl * Allergy Unknown Verified 01/18/19 12:46 [From Percodan] oxycodone terephthalate * Allergy Unknown Verified 01/18/19 12:46 [From Percodan] propoxyphene napsylate * Allergy unknown Verified 01/18/19 12:46 [From Darvocet-N 100] rosuvastatin calcium * Allergy Unknown Verified 01/18/19 12:46 [From Crestor] shellfish derived Allergy unknown Verified 01/18/19 12:46 sumatriptan [From Imitrex] Allergy Unknown Verified 01/18/19 12:46 sumatriptan succinate * Allergy Unknown Verified 01/18/19 12:46 [From Imitrex] - Social History Does the pt smoke?: No Smoking Status: Never smoker Does the pt drink ETOH?: No Does the pt have substance abuse?: No - Immunizations Immunizations are current?: Yes PD ED PE NORMAL - Vitals Vital signs reviewed: Yes - General General: No acute distress, Other (Patient is awake and attempting to cooperate, Though she seems somewhat confused.) - HEENT HEENT: Atraumatic, PERRL, EOMI, Moist mucous membranes - Neck Neck: Supple, no meningeal sign - Cardiac Cardiac: RRR, No murmur - Respiratory Respiratory: Clear bilaterally - Abdomen Abdomen: Soft, Non tender, Non distended - Derm Derm: Warm and dry - Extremities Extremities: No deformity - Neuro 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 She is not able to complete the stroke scale, secondary partially to aphasia but partially also due to seeming and comprehension of questions. She is able to elevate her right arm for 10 seconds without drift as well as both of her legs. Strength is 5+ in all 3 of those extremities. Patient has a very strong skip tracer on her left upper extremity, but patient has difficulty raising the arm even to gravity when asked to do so. She does follow commands. Patient is not able to say clearly whetherShe has sensation in various places, though when I touch her extremities and ask her to lift or move each various one, patient is able to do so.) - Psych Psych: Normal mood, Normal affect Results - Vitals Vitals: Vital Signs - 24 hr 04/23/19 04/23/19 04/23/19 19:49 21:07 21:41 Temperature 36.7 C Heart Rate 72 69 87 Respiratory 16 22 18 Rate Blood Pressure 154/132 H 134/80 H 166/73 H O2 Saturation 97 99 99 04/23/19 22:25 Temperature Heart Rate 90 Respiratory 18 Rate Blood Pressure 178/122 H O2 Saturation 94 Oxygen O2 Source [Without Activity] Room air O2 Source Room air - Labs Labs: Laboratory Tests 04/23/19 04/23/19 04/23/19 20:05 20:05 20:05 WBC 5.8 RBC 3.64 L Hgb 11.1 L Hct 34.0 L MCV 93.4 MCH 30.5 MCHC 32.6 RDW 13.0 Plt Count 194 MPV 8.8 Neut # (Auto) 4.0 Lymph # (Auto) 1.2 L Winn # (Auto) 0.5 Eos # (Auto) 0.1 Baso # (Auto) 0.0 Absolute Nucleated RBC 0.00 Nucleated RBC % 0.0 PT 11.1 INR 1.0 Sodium 137 Potassium 3.7 Chloride 97 L Carbon Dioxide 28 Anion Gap 12.0 BUN 11 Creatinine 0.8 Estimated GFR (MDRD) 70 L Glucose 104 H Calcium 9.3 Total Bilirubin 0.7 AST 22 ALT 17 Alkaline Phosphatase 52 Troponin I High Sens B-Natriuretic Peptide Total Protein 6.9 Albumin 4.2 Globulin 2.7 Albumin/Globulin Ratio 1.6 Lipase 36 TSH Urine Color Urine Clarity Urine pH Ur Specific [place] Urine Protein Urine Glucose (UA) Urine Ketones Urine Occult Blood Urine Nitrite Urine Bilirubin Urine Urobilinogen Ur Leukocyte Esterase Ur Microscopic Review Urine Culture Comments 04/23/19 04/23/19 04/23/19 20:05 20:05 20:05 WBC RBC Hgb Hct MCV MCH MCHC RDW Plt Count MPV Neut # (Auto) Lymph # (Auto) Winn # (Auto) Eos # (Auto) Baso # (Auto) Absolute Nucleated RBC Nucleated RBC % PT INR Sodium Potassium Chloride Carbon Dioxide Anion Gap BUN Creatinine Estimated GFR (MDRD) Glucose Calcium Total Bilirubin AST ALT Alkaline Phosphatase Troponin I High Sens 3.9 B-Natriuretic Peptide 98 Total Protein Albumin Globulin Albumin/Globulin Ratio Lipase TSH 1.59 Urine Color Urine Clarity Urine pH Ur Specific [place] Urine Protein Urine Glucose (UA) Urine Ketones Urine Occult Blood Urine Nitrite Urine Bilirubin Urine Urobilinogen Ur Leukocyte Esterase Ur Microscopic Review Urine Culture Comments 04/23/19 21:58 WBC RBC Hgb Hct MCV MCH MCHC RDW Plt Count MPV Neut # (Auto) Lymph # (Auto) Winn # (Auto) Eos # (Auto) Baso # (Auto) Absolute Nucleated RBC Nucleated RBC % PT INR Sodium Potassium Chloride Carbon Dioxide Anion Gap BUN Creatinine Estimated GFR (MDRD) Glucose Calcium Total Bilirubin AST ALT Alkaline Phosphatase Troponin I High Sens B-Natriuretic Peptide Total Protein Albumin Globulin Albumin/Globulin Ratio Lipase TSH Urine Color YELLOW Urine Clarity CLEAR Urine pH 7.0 Ur Specific [place] 1.010 Urine Protein NEGATIVE Urine Glucose (UA) NEGATIVE Urine Ketones NEGATIVE Urine Occult Blood NEGATIVE Urine Nitrite NEGATIVE Urine Bilirubin NEGATIVE Urine Urobilinogen 0.2 (NORMAL) Ur Leukocyte Esterase NEGATIVE Ur Microscopic Review NOT INDICATED Urine Culture Comments NOT INDICATED - Rads (name of study) CT head Radiology: Final report received, Discussed with rads, EMP read indepedently (Final radiologist impression: No injury cranial hemorrhage, mass, or other discrete acute process identified.Redemonstrated is fairly extensive right-sided parietal encephalomalacia, with associated calcifications, as before. There is associated ex vacuo right-sided ventricular dilatation, as before.) PD MEDICAL DECISION MAKING - ED course Complexity details: reviewed old records, reviewed results, re-evaluated patient , considered differential, d/w family, d/w commercial sales consultant ED course: The patient was evaluated in the emergency department by myself immediately upon arrival in the emergency department. I did immediately send her for a noncontrast CT scan of the brain, which was unremarkable for acute pathology. It did, however, show the existing atrophy from the patient's old stroke.I co nsulted Dr. Sam, [facility] stroke attending, after giving the patient an aspirin.He did evaluate the patient in the presence of her family via tele-stroke. After extensive evaluation and attempts to evaluate, he did state that he did not feel that the patient's symptoms represented a CVA at this time. Additionally, during the evaluation, the patient was found to have significantly improved use of her left upper extremity and was somewhat more verbal. The patient wasWorked up for other potential causes of delirium or altered mental status, as recommended by the neurologist. Her labs, including TSH, and urinalysis were unremarkable. I spoke extensively with the family regarding the situation. The was adamant that he wanted to take the patient home, despite the fact that she remained agitated after receiving a total of a milligram of Ativan parenterally in the emergency department.The son stated he would go home with his parents as he is done before, and that they were going to have a family meeting with all of his siblings tomorrow to determine what the next best step is. The patient has some home health help, but the family feels it is needed [id number], or that the patient needs to be committed to an assisted living/halfway facility. I have confirmed very carefully that the family indeed feels that they can manage the patient at home, and they have insisted that they can and they want to at this point in time.We have discussed that they may return to the emergency department anytime, if needed. Departure - Departure Disposition: 01 Home, Self Care Clinical Impression: Altered mental status Qualifiers: Altered mental status type: unspecified Qualified Code(s): R41.82 - Altered mental status, unspecified Dementia Qualifiers: Dementia type: unspecified type Dementia behavioral disturbance: with behavioral disturbance Qualified Code(s): F03.91 - Unspecified dementia with behavioral disturbance Condition: Fair Instructions: ED Dementia Caregiver Support Comments: Georgiana's labs and urinalysis look good. There is no evidence of an infection, thyroid disorder, electrolyte disturbance, or disturbance of other organ function to explain her behavioral disturbance and altered mental status. Her CT scan does not show acute findings. She has had a consultation via tele- stroke with Dr. Sam from [facility] neurology/stroke team. He feels that her symptoms are not likely to be caused by a stroke at this time. Most likely, she is having an exacerbation of her dementia. This is not uncommon among dementia patients. This is likely worsened by the fact that she has been in the emergency department into the night and this is caused her to Continue to be agitated. It is very important at this point to have a family discussion to determine what the best care plan is for her, both from her perspective and from the perspective of her caregivers, especially her . There are many options available, and we have provided you with a sheet detailing respite care options in the community, as well as home health options. Additionally, her primary care physician can be a resource as far as helping her to get more intensive care at home. Discharge Date/Time: 04/24/19 01:14
--- NOTE | 2019-04-23 20:22 | CT Report ---
Reason: code stroke Procedure Date: 04/23/2019 Accession Number: [id number] / [id number] Procedure: CT - Head W/O Stroke Protocol CPT Code: Addended Final Report FULL RESULT: EXAM: CT HEAD WITHOUT CONTRAST COMPARISON: CERVICAL SPINE W/O 01/18/2019 1:23 PM HEAD W/O 01/18/2019 1:23 PM. CLINICAL HISTORY: Code stroke.code strokeCOMMENTS: LEFT SIDE WEAKNESS 1800 PRIORS: CT HEAD 01/18/19, MR BRAIN 08/27/16. TECHNIQUE: Axial CT images were obtained from the foramen magnum to the vertex without contrast In accordance with CT protocol optimization, one or more of the following dose reduction techniques were utilized for this exam: automated exposure control, adjustment of mA and/or KV based on patient size, or use of iterative reconstructive technique. FINDINGS: No intracranial hemorrhage. No masses. No dense vessels. Redemonstrated is fairly extensive right-sided parietal encephalomalacia, with associated calcifications, as before. There is associated ex vacuo right-sided ventricular dilatation, as before. No unexpected intra-or extra-axial fluid collections. Mastoids are clear. Middle ears are clear. Pituitary fossa, clivus and foramen magnum are unremarkable. IMPRESSION: No intra-intracranial hemorrhage, mass, or other discrete acute process identified. Allowing for extensive prior presumed vascular injury, no discrete new process is identified. The critical test notification system was initiated by Dr. Honorio Bazan at 08:19 PM on 04/23/2019. ADDENDUM: 04/23/19 20:22 The above critical test findings were discussed with Ira Fields by Dr. Honorio Bazan at 08:22 PM on 04/23/2019.
[2019-04-23 20:28] LABS: ALBUMIN 4.2 g/dL (3.2-5.5); ALBUMIN/GLOBULIN RATIO 1.6 (1.0-2.2); BILIRUBIN,TOTAL 0.7 mg/dL (0.2-1.0); CALCIUM 9.3 mg/dL (8.5-10.3); CREATININE 0.8 mg/dL (0.4-1.0); TOTAL PROTEIN 6.9 g/dL (6.7-8.2)
[2019-04-23 22:09] LABS: BILIRUBIN,URINE NEGATIVE (NEGATIVE); GLUCOSE, URINE (UA) NEGATIVE (NEGATIVE); KETONES,URINE (UA) NEGATIVE (NEGATIVE); LEUKOCYTE ESTERASE, URINE NEGATIVE (NEGATIVE); NITRITE,URINE NEGATIVE (NEGATIVE); OCCULT BLOOD,URINE NEGATIVE (NEGATIVE); PROTEIN,URINE NEGATIVE (NEGATIVE); UROBILINOGEN,URINE 0.2 (NORMAL) E.U./dL (NORMAL)
[2019-04-23 22:10] LABS: CLARITY,URINE CLEAR (CLEAR)
[2019-04-23 22:26] VITALS: BP 178/122
[2019-04-23] MEDS ORDERED: LORazepam 2 MG/ML VIAL IVP STA (22:35)
[2019-04-23] MEDS ORDERED: LORazepam 2 MG/ML VIAL IM STA (23:20)
== END 2019-04-24 01:14 | disposition home or self-care (01) ==
LOC: EDUNIT# → ED 19:40
DX: R41.82 Altered mental status, unspecified (principal); F03.90 Unspecified dementia, unspecified severity, without behavioral disturbance, psychotic disturbance, mood disturbance, and anxiety; I10 Essential (primary) hypertension; Z86.73 Personal history of transient ischemic attack (TIA), and cerebral infarction without residual deficits
CPT/HCPCS: 36415; 70450; 80053; 81003; 83690; 83880; 84443; 84484; 85025; 85610; 96361; 96372; 96374; 99284; 99285; A9270; J2060; 81001; 87086

== ENCOUNTER 2019-04-24 01:16 | Outpatient (CLI) | payer MEDICARE, OTHER | END 2019-04-24 01:17 | disposition home or self-care (01) | LOC: EMS 01:16 | PROVIDERS: ATTEND Surgery | DX: Z74.01 Bed confinement status (principal) | CPT/HCPCS: A0425; A0428 ==

== ENCOUNTER 2019-04-24 15:52 | Outpatient (CLI) | payer MEDICARE, OTHER | END 2019-04-24 15:53 | disposition short-term general hospital (02) | LOC: EMS 15:52 | PROVIDERS: ATTEND Surgery | DX: R41.82 Altered mental status, unspecified (principal); R45.1 Restlessness and agitation | CPT/HCPCS: A0425; A0427; A0888 ==